=== PATIENT | male | born 1935 | race Caucasian/White ===

== ENCOUNTER → 2017-06-29 | Outpatient (CLI) | payer BC ==
[~2017-06-29] MED LIST: ASPI81TA28 PO; ATOR10TA88 PO; FINA5TAB PO; LEVO50TA6 PO; MULT-1027 PO; OXYC-57 PO; SENNTAB23 PO; SODI10IN5 INJ; TAMS0.4C38 PO; WARF2TAB PO
== END | disposition home or self-care (01) ==
LOC: C.RDSM 13:44
PROVIDERS: ATTEND Physical Medicine & Rehabilitation Sports Medicine
DX: M25.562 Pain in left knee (principal)

== ENCOUNTER 2017-08-12 05:41 | Inpatient (IN) | payer BC, OTHER ==
[2017-07-16 14:35] VITALS: BMI 27.0
--- NOTE | 2017-07-16 15:19 | PAT Medication Instructions ---
Service Date Jul 16, 2017. Current Home Medication List Aspirin (Aspirin Ec), 81 MG PO QPM Atorvastatin (Lipitor), 10 MG PO QPM Finasteride (Proscar), 5 MG PO QPM Levothyroxine Sodium (Levothyroxine Sodium), 1 TAB PO QPM Multiple Vitamin (Multi Vitamin), 1 TAB PO QPM Tamsulosin Hcl (Flomax), 0.4 MG PO QPM Medication Instructions For Your Scheduled Surgery - Take the following medications as scheduled the night before surgery: Aspirin (Aspirin Ec), 81 MG PO QPM Atorvastatin (Lipitor), 10 MG PO QPM Finasteride (Proscar), 5 MG PO QPM Levothyroxine Sodium (Levothyroxine Sodium), 1 TAB PO QPM Multiple Vitamin (Multi Vitamin), 1 TAB PO QPM Tamsulosin Hcl (Flomax), 0.4 MG PO QPM If you have any questions please call us at [phone] or [phone] or [phone]
[2017-07-16 16:10] LABS: BASO % 0.4 %; BASO ABS # 0.03 K/uL (0-0.2); COMPLETE YES; EOS % 5.4 %; HEMATOCRIT 47.8 % (42-52); IG% 0.3 %; LYMPH % 25.9 %; LYMPH ABS # 2.05 K/uL (1.2-3.4); MEAN CELL VOLUME 90.9 fL (80-100); MEAN CORPUSCULAR HEMOGLOBIN 30.2 pg (25-34); MEAN CORPUSCULAR HGB CONC 33.3 g/dl (32-36); MEAN PLATELET VOLUME 9.7 fL (7.4-10.4); MONO % 9.6 %; NEUT % 58.4 %; PLATELET COUNT 272 K/uL (130-400); RED BLOOD COUNT 5.26 M/uL (4.7-6.1); WHITE BLOOD COUNT 7.92 K/uL (4.8-10.8)
[2017-07-16 16:17] LABS: CALCIUM 10.1 mg/dl (8.5-10.1); CREATININE 1.1 mg/dl (0.60-1.40)
--- NOTE | 2017-07-16 16:17 | DIAGNOSTIC IMAGING REPORT ---
CHEST PREADMISSION(PA/LAT) CLINICAL HISTORY: Preoperative chest COMPARISON STUDY: No previous studies for comparison. FINDINGS: The cardiac and mediastinal contours are normal. There is no evidence of focal pulmonary consolidation. There is no evidence of failure. No pleural effusions are visualized.[ There is a calcified right upper lobe granuloma. . There is a 6 mm opacity the right lung base. A statistical basis, this represents either nipple shadow, postinflammatory nodule, or summation. IMPRESSION: 6 mm opacity at the right lung base, highly likely benign. No evidence of failure. No evidence of focal pulmonary consolidation Electronically signed by: Jonathan Carranza M.D. 07/16/2017 4:16 PM Dictated Date/Time: 07/16/2017 4:14 PM
[2017-07-16 16:30] LABS: INR 1.1 (0.9-1.1); PARTIAL THROMBOPLASTIN RATIO 1.7; PROTHROMBIN TIME (PATIENT) 11.5 SECONDS (9.0-12.0)
[2017-07-16 16:42] LABS: URINE APPEARANCE CLEAR (CLEAR); URINE BILIRUBIN NEG (NEG); URINE COLOR YELLOW; URINE NITRITE NEG (NEG); URINE SPECIFIC GRAVITY 1.022 (1.000-1.030); UROBILINOGEN NEG (NEG); ZZUR CULT IF INDIC CLEAN CATCH NO
[2017-07-16 16:43] LABS: MANUAL MICROSCOPIC REQUIRED? NO; REVIEW REQ? NO
--- NOTE | 2017-07-28 17:33 | HISTORY & PHYSICAL EXAMINATION ---
DATE OF ADMISSION: 08/12/2017 PREOPERATIVE HISTORY AND PHYSICAL CHIEF COMPLAINT: Left knee pain. HISTORY OF PRESENT ILLNESS: This 81-year-old white male presents for evaluation of left knee pain that has been present since 2011. Pain has become worse over the last year. No new injury. He likes to play pickleball, both here and in [place]. Pain is worse with weightbearing. It is affecting his ADLs. He denies any numbness or tingling. He has tried cortisone injections, viscosupplementation, and oral pain medication without success. He elects to proceed with total knee arthroplasty in hopes of alleviating his pain. X-rays have been obtained. PAST MEDICAL HISTORY: Significant for elevated cholesterol, aortic valve stenosis, BPH, chronic constipation, GERD, hypoglycemia, hypothyroidism, osteoarthritis, rosacea, and history of cataracts. PREVIOUS SURGERIES: Colonoscopy, sepsis surgery, tonsillectomy with adenoidectomy. ALLERGIES: NKDA. CURRENT MEDICATIONS: Aspirin 81 mg daily, atorvastatin 10 mg p.o. at bedtime, Colace 100 mg p.o. b.i.d., Flomax 0.4 mg p.o. daily, Synthroid 50 mcg p.o. daily, multivitamin daily, and Proscar 5 mg daily. SOCIAL HISTORY: The patient is . No tobacco use, no ETOH use. FAMILY HISTORY: Significant for Alzheimer disease, aortic valve disorder, arthritis, breast cancer, ovarian cancer, heart disease, dementia, diabetes, liver cancer and pancreatic cancer. Parents are . REVIEW OF SYSTEMS: Significant for above-stated conditions, otherwise unremarkable. PHYSICAL EXAMINATION: GENERAL: Well-developed, well-nourished elderly white male in no acute distress. Sitting in a chair. Alert and oriented. SKIN: Warm and dry with good turgor. No rashes or lesions. No ecchymosis or erythema. HEENT: Normocephalic, atraumatic. Eyes PERRLA, EOMI. Nares patent bilaterally without turbinate enlargement. Oropharynx without erythema or exudate. No lesions noted. Uvula midline. Oral mucosa moist. Fair dentition. Dental caps are noted. HEART: RRR, 2/6 systolic ejection murmur noted. No gallops or rubs. LUNGS: Clear to auscultation bilaterally. No crackles, rhonchi or wheezing. Good air movement. ABDOMEN: Bowel sounds present x4, soft, nontender. No organomegaly. No masses. MUSCULOSKELETAL: Left knee has no intraarticular effusion. Focal discomfort with palpation over the medial joint line. Varus alignment. No lateral joint line discomfort today. Stable collateral ligaments. No defect in the patellar tendon or quadriceps tendon. He lacks just 2 or 3 degrees of terminal extension. Flexion to greater than 100 degrees. Strength is 5/5 with good quad tone. NEUROLOGIC: Gross sensation is intact across both lower extremities by soft touch. Peripheral pulses are 2+. DATA: Radiographic imaging previously obtained shows end-stage DJD of the left knee. Periarticular osteophytes, subchondral sclerosis, and joint space narrowing are present. DJD is worse in the medial compartment. IMPRESSION: Left knee end-stage degenerative joint disease. PLAN: Informed written consent will be obtained to proceed with left total knee arthroplasty. Operative procedure, postoperative recovery, physical therapy requirements and medication use were reviewed. Postoperative prescriptions for Percocet and Coumadin will be provided at discharge from the hospital. Anticipate discharge to home with outpatient PT services. He already has a walker and cane. Medical clearance was requested from Dr. Decker. Preoperative lab work, EKG, and chest x-ray have been ordered.
[2017-08-12] VITALS (9 sets, daily range): BP systolic 111–156; BP diastolic 64–93; PULSE 66–90; TEMP 36.4–37.2; O2SAT 94–100; Ht 180.3 cm; Wt 89.9 kg
[~2017-08-12] VITALS: Ht 180.3 cm; Wt 89.9 kg
[~2017-08-12 05:41] MED LIST changes: +LACTATED RINGER'S 1000ML 1,000 ML IV SCH; +LACTATED RINGER'S 1000ML 500 ML IV ONE; -OXYC-57 PO; -SENNTAB23 PO; -SODI10IN5 INJ; -WARF2TAB PO
[2017-08-12] MEDS ORDERED: ROPIVACAINE 5MG/ML 30 ML 150 MG, BUPIVACAINE/EPINEPHR 0.5% MPF 30 ML, KETOROLAC TROMETH... INFIL SCH ×7 (06:00)
[2017-08-12] MEDS ORDERED: LACTATED RINGER'S 1000ML IV SCH (06:00)
[2017-08-12] MEDS ORDERED: CEFAZOLIN 2000 MG/60 ML D5W 60 ML IV SCH (06:00)
[2017-08-12] MEDS ORDERED: LACTATED RINGER'S 1000ML 1,000 ML IV SCH (06:00)
[2017-08-12] MEDS ORDERED: TRANEXAMIC ACID INJ 1,000 MG in SODIUM CHLORIDE 0.9% 100ML 100 ML IV SCH ×2 (06:00→16:00)
[2017-08-12] MEDS ORDERED: LACTATED RINGER'S 1000ML 500 ML IV ONE (06:00)
[2017-08-12] MEDS ORDERED: SENNTAB23 PO (06:12)
--- NOTE | 2017-08-12 06:26 | History & Physical Bridge Note ---
H&P Re-Evaluation Bridge Note: I have examined the patient, reviewed the History & Physical and in the interval since the performance of the History & Physical I have noted the following changes of clinical significance: reviewed consent.No changes noted
[2017-08-12] MEDS ORDERED: BUPIVACAINE 0.5 % 5 MG/1 ML PF 10ML VIAL ONE (06:31)
[2017-08-12] MEDS ORDERED: ONDANSETRON INJ 2 MG/ML 2 ML VIAL ONE (07:19)
[2017-08-12] MEDS ORDERED: LIDOCAINE HCL 2% 2 ML VIAL (20MG/ML) ONE (07:19)
[2017-08-12] MEDS ORDERED: PROPOFOL IV EMULSION 10 MG/ML 20 ML VIAL IV ONE (07:19)
[2017-08-12] MEDS ORDERED: FENTANYL CITRATE INJ 50 MCG/1 ML 2 ML VIAL ONE ×2 (07:30→08:59)
[2017-08-12] MEDS ORDERED: MIDAZOLAM HCL 1 MG/ML 2ML VIAL ONE (07:30)
[2017-08-12] MEDS ORDERED: BUPIVACAINE 0.25% 30 ML VIAL ONE (08:00)
[2017-08-12] MEDS ORDERED: ONDANSETRON INJ 2 MG/ML 2 ML VIAL IV PRN ×2 (08:30→10:45)
[2017-08-12] MEDS ORDERED: EpHEDrine SULFATE INJ 50 MG/ML AMP IV PRN (08:30)
[2017-08-12] MEDS ORDERED: MoRPHine SULFATE 10 MG/ML CARP/VIAL IV PRN (08:30)
[2017-08-12] MEDS ORDERED: ATROPINE SULFATE 0.1 MG/ML 5ML SYR IV PRN (08:30)
[2017-08-12] MEDS ORDERED: FENTANYL CITRATE INJ 50 MCG/1 ML 2 ML VIAL IV PRN (08:30)
[2017-08-12] MEDS ORDERED: ORTHO JOINT ANESTHETIC ONE (08:34)
[2017-08-12] MEDS ORDERED: POVIDONE-IODINE OP SOLN 30 ML BTL ONE (08:34)
[2017-08-12] MEDS ORDERED: EpHEDrine SULFATE INJ 50 MG/ML AMP ONE (09:53)
[2017-08-12] MEDS ORDERED: PHENYLEPHRINE 100MCG/ML 5ML SYR ONE (10:27)
--- NOTE | 2017-08-12 10:36 | [facility] Post Operative Brief Note ---
Immediate Operative Summary Operative Date Aug 12, 2017. Pre-Operative Diagnosis Left Knee End-Stage Degenerative Joint Disease Post-Operative Diagnosis Left Knee End-Stage Degenerative Joint Disease Procedure(s) Performed Left Total Knee Arthroplasty Surgeon Dr. Luciano Fraud Representative Surgeon(s) Dr. Siddiqui (Fellow)/ DELFINO Cedeño Estimated Blood Loss 50 ml Findings severe medial djd/varus/flexion deformity Fluids (cc crystalloids) 1400cc Specimens A. Left Knee Bone and Tissue Drains none Anesthesia LMA/obturator block Complication(s) None Disposition Recovery Room / PACU
[2017-08-12] MEDS ORDERED: MoRPHine SULFATE 2 MG/ML CARP IV PRN (10:45)
[2017-08-12] MEDS ORDERED: OXYCODONE HCL IR 5 MG TAB (IMMEDIATE RELEASE) PO PRN (10:45)
[2017-08-12] MEDS ORDERED: ACETAMINOPHEN 325 MG TAB PO PRN (10:45)
[2017-08-12] MEDS ORDERED: ALUMINUM/MAGNESIUM/SIMETH (MAALOX MAX) 30 ML UDC PO PRN (10:45)
[2017-08-12] MEDS ORDERED: DiphenhydrAMINE HCL 50 MG/ML VIAL IV PRN (10:45)
[2017-08-12] MEDS ORDERED: BISACODYL 10 MG SUPP PR PRN (10:45)
[2017-08-12] MEDS ORDERED: MAGNESIUM HYDROXIDE SUSP 30 ML UDC PO PRN (10:45)
[2017-08-12] MEDS ORDERED: METOCLOPRAMIDE HCL INJ 5 MG/ML 2 ML VIAL IV PRN (10:45)
--- NOTE | 2017-08-12 11:19 | OPERATIVE REPORT ---
DATE OF OPERATION: 08/12/2017 PREOPERATIVE DIAGNOSIS: Osteoarthritis with varus and flexion deformity, left knee. POSTOPERATIVE DIAGNOSIS: Same. OPERATION PERFORMED: Cemented left total knee replacement. SURGEON: Dr. Luciano. FUNCTIONAL SKILLS TUTOR: Artur. SECOND FUNCTIONAL SKILLS TUTOR: Nicanor Bello PA-C. PERIOPERATIVE SITUATION: Medically cleared male with intractable pain. Of note is that he had slightly elevated PTT. It was elected to use general anesthetic for that rather than the risk the spinal with epidural hematoma. There was no contraindication to proceed with surgery particularly without tourniquet. SUMMARY OF IMPLANTS: Size 4 posterior cruciate stabilized left knee, size 4 rotating tibial platform tray, oval domed 3 pegged patella size 41 tibial insert rotating platform size 4, 10 mm posterior cruciate substituting, 2 bags of Palacos G cement. ESTIMATED BLOOD LOSS: 50 mL after release of the tourniquet. CRYSTALLOID: 1400 mL. PROCEDURE: The patient appropriately identified, site verified, consent verified, 2 grams of Ancef and a gram of TXA confirmed as being given. The left lower extremity was prepped and draped in usual routine fashion. Tourniquet inflated to 300 mmHg after exsanguination of limb with a rubber Esmarch bandage for a total of 64 minutes. Anterior approach to the knee made. Parapatellar arthrotomy performed. Appropriate synovectomy completed, soft tissue releases needed to be quite extensive to get rid of the varus flexion deformity. Distal femur then resected 14 mm, proximal tibia 4 mm, extension gap was good. Femur was sized to a 4. It was cut and the flexion gap was slightly tight but after capsular releases, it was appropriate. There was no notching of the femur. Box cut was then made and the size 4 trial fit well. The tibia was then broached and reamed to a 4 and that fit well. The 10 mm spacer had excellent stability in full range. The patella tracked well. The patella was resected leaving 16 mm and 41 patella button placed. It tracked well. All trial implants were then removed. The wound was injected with Orthomix then irrigated with Pulsavac with Betadine and a Pulsavac and then the permanents cemented into position. After 12 minutes, the tourniquet deflated. After 14 minutes the knee flexed. Minor bleeding points controlled with electrocautery. Minor cement removal needed to occur. The wound was irrigated with the Pulsavac, Betadine. Permanent liner seated, knee reduced and then closed with #1 Ethibond, #1 Vicryl, 2-0 Vicryl and stainless steel clips. Appropriate dressing applied and patient transferred to recovery room in satisfactory condition having tolerated the procedure well. DVT prophylaxis will be carefully performed with Coumadin, try to keep INR less than 2. I attest to the content of the Intraoperative Record and any orders documented therein. Any exception s are noted below.
--- NOTE | 2017-08-12 11:26 | Anesthesiology Progress Note ---
Anesthesia Post Op Note Date & Time Aug 12, 2017 at 11:26 Vital Signs Pain Intensity: 0 Vital Signs Past 12 Hours Date Time Temp Pulse Resp B/P (MAP) Pulse Ox O2 Delivery O2 Flow Rate FiO2 08/12/17 11:20 36.3 69 14 141/75 95 Nasal Cannula 2 08/12/17 11:10 70 15 148/75 98 Nasal Cannula 2 08/12/17 11:00 71 14 143/73 97 Oxymask 10 08/12/17 10:50 69 12 120/66 98 Oxymask 10 08/12/17 10:44 36.2 73 16 121/64 97 Oxymask 10 08/12/17 06:19 36.4 74 20 156/93 97 Room Air Notes Mental Status: alert / awake / arousable, participated in evaluation Pt Amnestic to Procedure: Yes Nausea / Vomiting: adequately controlled Pain: adequately controlled Airway Patency, RR, SpO2: stable & adequate BP & HR: stable & adequate Hydration State: stable & adequate Anesthetic Complications: no major complications apparent
--- NOTE | 2017-08-12 11:30 | DIAGNOSTIC IMAGING REPORT ---
LEFT KNEE 2 VIEWS History: Left total knee arthroplasty. Degenerative arthritis. Postop. FINDINGS: The patient is status post a left total knee arthroplasty. The hardware is intact. No fracture or dislocation. Skin jacqueline are in place. IMPRESSION: Left total knee arthroplasty. No evidence for hardware complication. Electronically signed by: Sanjiv Mon M.D. 08/12/2017 11:29 AM Dictated Date/Time: 08/12/2017 11:28 AM
[2017-08-12] MEDS ORDERED: D5W AND 1/2NSS + 20MEQ KCL 1,000 ML IV SCH (12:30)
[2017-08-12] MEDS ORDERED: MoRPHine SULFATE 4 MG/ML 1 ML CARP\\VIAL IV PRN ×2 (13:00)
--- NOTE | 2017-08-12 13:08 | [facility] Operative Report ---
Operative Report Operative Date Aug 12, 2017. Pre-Operative Diagnosis Left Knee End-Stage Degenerative Joint Disease Post-Operative Diagnosis Left Knee End-Stage Degenerative Joint Disease Procedure(s) Performed Left Total Knee Arthroplasty Surgeon Dr. Luciano Fitness Floor Attendant Surgeon(s) Dr. Siddiqui (Fellow)/ DELFINO Loya Estimated Blood Loss 50 ml Findings Left knee end-stage DJD Fluids 1400cc Specimens A. Left Knee Bone and Tissue Drains none Anesthesia LMA/obturator block Complication(s) None Disposition Recovery Room / PACU Indications This 81-year-old white male presents to the office with complaints of intractable left knee pain. He had tried conservative care measures including activity modification, oral pain medication, and injection therapy without relief. He elected to proceed with surgical intervention after being educated about potential risks and outcomes. Preoperative imaging was obtained. Description of Procedure Patient was administered a regional block and then taken to the operating room where he was given general anesthesia. He was prepped and draped in usual sterile fashion. Please see Dr. Luciano's operative report for specifics of the procedure. I was present for the entire case from initial patient positioning through final wound closure. Assistance was provided in tissue traction, hemostasis, trial implant placement, final implant placement, and final wound closure. Patient was taken to the recovery room in satisfactory condition. I attest to the content of the Intraoperative Record and any orders documented therein. Any exceptions are noted below.
--- NOTE | 2017-08-12 13:41 | Progress Note ---
Progress Note Date of Service Aug 12, 2017. Progress Note Postop check patient doing well denies chest pain shortness breath fever chills nausea vomiting or headache. Tolerated lunch. Vital signs stable afebrile. Wound dressing clean and dry neurovascular check normal. Postop x-rays look excellent. Assessment doing well continue with care pathway. Hep-Lock IV. Dictated not read.
[2017-08-12] MEDS: CEFAZOLIN IV 2,000 MG in DEXTROSE 5% 50ML 50 ML IV SCH ×2 (15:41→23:20)
[2017-08-12] MEDS ORDERED: WARFARIN SOD 5 MG TAB PO SCH (16:00)
[2017-08-12] MEDS: KETOROLAC TROMETHAMINE 15 MG/ML VIAL IV. SCH ×2 (18:09→23:21)
[2017-08-12] MEDS: FERROUS GLUCONATE 324 MG TAB PO SCH (18:09)
[2017-08-12] MEDS: DOCUSATE SODIUM 100 MG CAP PO SCH (20:54)
[2017-08-12] MEDS ORDERED: FINASTERIDE 5 MG TAB PO SCH (21:00)
[2017-08-12] MEDS ORDERED: LEVOTHYROXINE 50 MCG TAB PO SCH (21:00)
[2017-08-12] MEDS ORDERED: TAMSULOSIN HCL 0.4 MG CAP PO SCH (21:00)
[2017-08-12] MEDS ORDERED: MULTIVITAMIN TAB PO SCH (21:00)
[2017-08-12] MEDS ORDERED: ATORVASTATIN 10 MG TAB PO SCH (21:00)
[2017-08-13 03:10] VITALS: BP 122/67; PULSE 76; TEMP 37; O2SAT 96
[2017-08-13] MEDS: KETOROLAC TROMETHAMINE 15 MG/ML VIAL IV. SCH ×2 (05:39→12:06)
--- NOTE | 2017-08-13 07:11 | PROGRESS NOTE ---
DATE: 08/13/2017 Postop day 1 status post left total knee replacement. The patient had good evening. Denies any problems with pain management and has no chest pain, shortness of breath, fever, chills, nausea, vomiting or headache. Vital signs are stable. He is afebrile. Neurovascular check femoral sciatic nerve is normal. Wound dressing clean, dry and intact. Calves nontender. A.m. labs are pending. ASSESSMENT: Doing well. Continue with postop pathway. We will discharge later today after PT, OT. We will discharge on 4 mg Coumadin if INR is less than 1.5; 2 mg if greater than 1.5. Doing outpatient PT.
--- NOTE | 2017-08-13 07:13 | DISCHARGE SUMMARY ---
DATE OF DISCHARGE: 08/13/17 CHIEF COMPLAINT: Left knee. HISTORY OF PRESENT ILLNESS: This is a 81-year-old male admitted for elective left total knee replacement. He notes that he has had no major issues overnight. He denies chest pain, shortness of breath, fever, chills, nausea, vomiting or headache. Pain is well managed. PAST MEDICAL HISTORY: Remarkable for hypercholesterolemia, aortic stenosis, BPH, chronic constipation, GERD, hypoglycemia, hypothyroidism, osteoarthritis, rosacea and cataracts. PAST SURGICAL HISTORY: Include colonoscopy, sepsis surgery, tonsillectomy and adenoidectomy. ALLERGIES: None. PREOPERATIVE MEDICATIONS: Include aspirin, atorvastatin, Colace, Flomax, Synthroid, multivitamin and Proscar. He will continue all of those and add Coumadin to keep INR 1.8-2.2. Will discharge on 4 mg if INR is less than 1.5 and 2 mg if INR is greater than 1.5. P.r.n. use of narcotics, see prescription. SOCIAL HISTORY: Reveals he is . No tobacco or alcohol use. FAMILY HISTORY: Remarkable for Alzheimer's disease, aortic valve disease, arthritis, breast cancer, ovarian cancer, heart disease, dementia, diabetes, liver cancer, pancreatic cancer. Parents are . REVIEW OF SYSTEMS: Noncontributory. ASSESSMENT: Hospital course has been uneventful, is doing well status post left total knee replacement. Discharge after PT, OT today. Coumadin dose per nomogram today. Of note is that his baseline PTT is relatively elevated and as such, will try to keep his INR below 2.
[2017-08-13 07:30] LABS: HEMATOCRIT 34.5 % (42-52); MEAN CELL VOLUME 88.9 fL (80-100); MEAN CORPUSCULAR HEMOGLOBIN 31.2 pg (25-34); MEAN CORPUSCULAR HGB CONC 35.1 g/dl (32-36); PLATELET COUNT 209 K/uL (130-400); RED BLOOD COUNT 3.88 M/uL (4.7-6.1)
[2017-08-13] MEDS ORDERED: DEXAMETHASONE INJ 10 MG in SYRINGE 0 ML IV ONE (07:30)
[2017-08-13 07:35] VITALS: BP 135/72; PULSE 80; TEMP 36.7; O2SAT 97
[2017-08-13 07:40] LABS: INR 1.2 (0.9-1.1); PROTHROMBIN TIME (PATIENT) 12.8 SECONDS (9.0-12.0)
[2017-08-13 08:05] LABS: BUN/CREATININE RATIO 13.9 (10-20); CALCIUM 8.6 mg/dl (8.5-10.1); CREATININE 1.2 mg/dl (0.60-1.40)
[2017-08-13] MEDS ORDERED: WARF2TAB PO (08:06)
[2017-08-13] MEDS ORDERED: OXYC-57 PO (08:06)
--- NOTE | 2017-08-13 08:06 | Anesthesiology Progress Note ---
Anesthesia Post Op Note Date & Time Aug 13, 2017 at 08:05 Vital Signs Pain Intensity: 2.0 Vital Signs Past 12 Hours Date Time Temp Pulse Resp B/P (MAP) Pulse Ox O2 Delivery O2 Flow Rate FiO2 08/13/17 03:10 37.0 76 16 122/67 (85) 96 Room Air 08/12/17 23:55 36.9 79 16 118/64 (82) 95 Room Air 08/12/17 23:20 Room Air Notes Mental Status: alert / awake / arousable, participated in evaluation Pt Amnestic to Procedure: Yes Nausea / Vomiting: adequately controlled Pain: adequately controlled Airway Patency, RR, SpO2: stable & adequate BP & HR: stable & adequate Hydration State: stable & adequate Anesthetic Complications: no major complications apparent
--- NOTE | 2017-08-13 08:09 | Discharge Instructions ---
Discharge Instructions Date of Service Aug 13, 2017. Admission Reason for Admission: Left Knee Degenerative Joint Disease Discharge Discharge Diagnosis / Problem: Left knee s/p total knee replacement Discharge Goals Goal(s): Decrease discomfort, Improve function, Increase independence Activity Recommendations Activity Limitations: as noted below Lifting Limitations: gradually increase as tolerated Exercise/Sports Limitations: until after follow-up appointment Shower/Bathe: keep incision dry Driving or Machine Use: No driving until cleared by Dr. Luciano Weightbearing Status: Left weightbearing (as tolerated) . Instructions / Follow-Up Instructions / Follow-Up New Medicine: * You will likely be taking one or more of these medications: 1. Percocet - Take, as directed, when you need it, every four to six hours to control your pain. 2. Coumadin - Thins your blood to lessen the chance of forming a blood clot. The dose of this is different for each person and is based on your blood tests that are done twice a week. * The most common side effects of pain medicine and iron are nausea and constipation. If nausea or constipation is too much of a problem or if you have any questions about your new medicines or doses, call [facility] at . We will try to help you manage these issues. VERY IMPORTANT TO READ AND REVIEW" Blood Clots and Blood Thinning Medicine: * You are given Coumadin during the immediate post-operative period to lessen the risk of blood clots forming in your legs and/or lungs. Coumadin is usually given for six weeks after surgery. * The prescription is for 2 mg tablets. At discharge, you should understand your dose and take it all at the same time every day, preferably after dinner. * You need to get your blood checked 1 - 2 times per week for six weeks or as directed. * If your dose needs to change, we will call you. Do not take your medication on the day of the blood test until we call you. Pain: * The immediate post-operative period after knee replacement surgery is often quite painful. * You are given a prescription for pain medicine. You should take it, as directed, when you need it, especially before physical therapy and before going to bed. Pain that interferes with sleep is very common and can last several months. * You will likely need pain medicine for the first four to six weeks. It will not stop all of the pain. The pain will lessen and as you feel better, you may change to milder pain medicine such as Tylenol. * The most common side effects of pain medicine are nausea and constipation, so don't take more than you need. Physical Therapy: * You will have physical therapy two or three times each week for four to six weeks after your surgery in order to regain your knee range of motion and to retrain your knee to work properly. * It is just as important to make sure you are getting your knee perfectly straight as it is to regain your knee bend. * Taking a pain pill an hour before therapy can help you have a more productive and comfortable therapy session if needed. Home Exercise: * You were shown a series of exercises (heel props, heel slides, etc.) in the hospital. Do these exercises three to four times each day including the exercises you were shown in physical therapy. Walking: * Get up and walk several times each day. For the first four weeks, try not to stand or walk for more than one hour at a time. If you do stand or walk for more than one hour, you will not hurt anything, but your knee and leg will likely swell. * As you feel comfortable, you may change from the walker or crutches to a cane and then to independent walking. SELF CARE INSTRUCTIONS AFTER TOTAL KNEE REPLACEMENT A. You may need to continue a physical therapy program after discharge from the hospital. There are several options available to you. Your doctor will assist you in selecting the best one for you. 1. An out-patient facility 2 to 3 times a week for therapy or home therapy. 2. Continue working on all exercises taught to you in the hospital. Your goals should be to increase bending of your knee to 90 degrees and beyond and to fully straighten your knee. B. You may progress at your own pace from walking with a walker or crutches to a cane; then to no assistive devices. C. Make walking a part of your daily routine. Be up as much as comfortable with rest periods throughout the day. Rest with leg elevation is very important. Use the ice wrap frequently for the first 3-4 weeks. D. There are no restrictions on activities. You may ride in a car, shop, participate in web developer programmer and all social activities. E. Wear the long elastic stockings (REHANA hose) 20 hours a day for six weeks after surgery. They can be removed several times a day for laundering and for a shower. F. Do not place a pillow behind your knee when resting. A pillow at your ankle is okay. VERY IMPORTANT TO READ AND REVIEW A. Take Coumadin, Aspirin or Lovenox (blood thinning medications) as directed by your doctor. If on Coumadin, have a pro-time (blood test) drawn according to your doctor's instructions. This will tell the doctor how well the Coumadin is thinning your blood. 1. YOU WILL BE GIVEN AN ORDER AT DISCHARGE FOR PT/INR (BLOOD WORK). PLEASE HAVE THIS DONE INSTRUCTED. PLEASE CALL OUR OFFICE AFTER YOUR BLOODWORK IS COMPLETE SO WE CAN TRACK YOUR RESULTS. IF YOU ARE GOING TO OUTPATIENT PHYSICAL THERAPY, YOU WILL NEED TO GO TO OUTPATIENT TESTING TO HAVE IT DRAWN. B. There are a few signs you need to watch for after you are home. Call [facility] if you notice any of the followin. Increased severe knee pain. Some pain is expected especially when you exercise. 2. Increased swelling in your leg or knee; pain or swelling of the calf muscle in either lower leg. 3. Any fluid drainage from the incision. 4. Shortness of breath or chest pain. C. Please call [facility] at if you have any concerns or questions about your operation or recovery. The doctor or his nurse will return your call promptly. D. You must take antibiotics before dental work, bladder, bowel or other surgery. Call the office to obtain a prescription at least 2 days prior to your appointment. * CALL IF INCREASED PAIN, REDNESS, DRAINAGE OR FEVER GREATER THAT 101. * Sutures should be removed 12-14 days after surgery unless you are on chronic steriods, then it will be 14-18 days after surgery. Call your doctor if: * Temperature above 101 degrees F. * Pain not relieved by pain medicine ordered. * Increased drainage or redness from incision. * Notify your doctor with any questions or concerns. Current Hospital Diet Patient's current hospital diet: Regular Diet Discharge Diet Recommended Diet: Regular Diet Procedures Procedures Performed: Left Total Knee Arthroplasty Pending Studies Studies pending at discharge: no Medical Emergencies . Who to Call and When: Medical Emergencies: If at any time you feel your situation is an emergency, please call 911 immediately. . Non-Emergent Contact Non-Emergency issues call your: Primary Care Provider, Surgeon Call Non-Emergent contact if: temperature is above 101, wound has increased drainage, wound has increased redness, wound has increased pain, you have any medication questions . "Provider Documentation" section prepared by Nicanor Bello PA-C. . VTE Core Measure Inpt VTE Proph given/why not?: Warfarin (Coumadin), T.E.D. Stockings, SCD's [place] Drug Monitoring Program Search Results: no issues identified
--- NOTE | 2017-08-13 08:20 | Orthopedic Progress Note ---
Orthopedic Progress Note Date of Service Aug 13, 2017. Subjective Post OP Day: 1 Reports: feeling well, pain controlled w PO medications, Denies: complaints, chest pain, SOB, nausea / vomiting, light headedness, calf pain Additional Notes: States he feels well. Objective calves soft nontender, N/V intact, capillary refill less than 2 sec., dressing C /D/I, incision C/D/I, A&O x3, toes mobile, CMS intact No active drainage, expected edema. Able to do a SLR. Date Time Temp Pulse Resp B/P (MAP) Pulse Ox O2 Delivery O2 Flow Rate FiO2 08/13/17 03:10 37.0 76 16 122/67 (85) 96 Room Air 08/12/17 23:55 36.9 79 16 118/64 (82) 95 Room Air 08/12/17 23:20 Room Air 08/12/17 19:13 36.7 90 18 147/80 (102) 95 Room Air 08/12/17 15:40 Room Air 08/12/17 14:51 36.4 66 16 135/73 (93) 100 Nasal Cannula 2.0 08/12/17 13:40 69 16 147/79 (101) 100 Nasal Cannula 2.0 08/12/17 12:59 73 16 152/80 (104) 08/12/17 12:28 67 16 146/76 (99) 08/12/17 11:40 98 Nasal Cannula 2.0 08/12/17 11:40 Nasal Cannula 2.0 98 08/12/17 11:40 36.4 70 16 150/81 (104) 98 Nasal Cannula 2.0 08/12/17 11:30 66 14 136/74 97 Nasal Cannula 2 08/12/17 11:20 36.3 69 14 141/75 95 Nasal Cannula 2 08/12/17 11:10 70 15 148/75 98 Nasal Cannula 2 08/12/17 11:00 71 14 143/73 97 Oxymask 10 08/12/17 10:50 69 12 120/66 98 Oxymask 10 08/12/17 10:44 36.2 73 16 121/64 97 Oxymask 10 Laboratory Results 24 Hours: Test 08/13/17 06:56 Hematocrit 34.5 % Hemoglobin 12.1 g/dL Prothromb Time International Ratio 1.2 Prothrombin Time 12.8 SECONDS Assessment & Plan Assessment: Left knee s/p total knee arthroplasty Plan: PT/OT today Anticipate D/C to home today coumadin per nomogram f/u in the office in 2 weeks. dressing changed this morning-wound looks very good. Discharge Planning Discharge Planning: home Pain Management: Percocet DVT Prophylaxis: TEDs, SCDs, Coumadin Therapy: Physical Therapy, Occupational Therapy
[2017-08-13] MEDS ORDERED: MULTIVITAMIN TAB PO SCH (09:00)
[2017-08-13] MEDS ORDERED: PANTOprazole SOD 40 MG TAB PO SCH (09:00)
[2017-08-13] MEDS: FERROUS GLUCONATE 324 MG TAB PO SCH ×2 (09:53→12:06)
[2017-08-13] MEDS: DOCUSATE SODIUM 100 MG CAP PO SCH (09:53)
[2017-08-13 11:20] VITALS: BP 158/79; PULSE 79; TEMP 36.7; O2SAT 96
[2017-08-13 11:35] VITALS: BP 158/79; PULSE 79; TEMP 36.7; O2SAT 96
[2017-08-13] MEDS ORDERED: WARFARIN SOD 5 MG TAB PO ONE (16:00)
== END 2017-08-13 15:25 | disposition home or self-care (01) | DRG 470 ==
LOC: C.ACU 05:41 → C.3E 06:25 → ENRESERV 11:07
PROVIDERS: ADMIT Physical Medicine & Rehabilitation Sports Medicine; ATTEND Physical Medicine & Rehabilitation Sports Medicine
PROC: 0SRD0J9 Replacement of Left Knee Joint with Synthetic Substitute, Cemented, Open Approach (ICD-10-PCS; principal; 2017-08-12 08:55)
DX: M17.12 Unilateral primary osteoarthritis, left knee (principal); E78.00 Pure hypercholesterolemia, unspecified; N40.0 Benign prostatic hyperplasia without lower urinary tract symptoms; K59.09 Other constipation; K21.9 Gastro-esophageal reflux disease without esophagitis; E03.9 Hypothyroidism, unspecified

== ENCOUNTER → 2017-09-29 | Outpatient (CLI) | payer BC, OTHER ==
[~2017-09-29] MED LIST changes: +ATOR10TA82 PO; -ATOR10TA88 PO; -LACTATED RINGER'S 1000ML 1,000 ML IV SCH; -LACTATED RINGER'S 1000ML 500 ML IV ONE; +OXYC-57 PO; +SENNTAB23 PO; +WARF2TAB PO
--- NOTE | 2017-09-29 14:06 | DIAGNOSTIC IMAGING REPORT ---
LEFT KNEE 3 VIEWS HISTORY: LEFT KNEE PAIN COMPARISON: Left knee 08/12/2017. FINDINGS: There is no fracture or dislocation. Interval left total knee arthroplasty. Mild periprosthetic lucency adjacent to the medial femoral condyle. This measures up to 2 mm. There is a medial tilt to the patella. This is likely chronic due to the medial patellar tilt. Large joint effusion. Anterior soft tissue swelling. No periprosthetic lucency. Severe cartilage space narrowing within the medial compartment of the right knee with [id number] articulation. IMPRESSION: 1. Large joint effusion and anterior soft tissue swelling. 2. Interval left total knee arthroplasty. There is mild periprosthetic lucency at the medial femoral condyle. This could be projectional are due to loosening/infection. Electronically signed by: Sanjiv Mon M.D. 09/29/2017 2:05 PM Dictated Date/Time: 09/29/2017 1:58 PM
== END | disposition home or self-care (01) ==
LOC: C.RDSM 13:38
PROVIDERS: ATTEND Physician Assistant
DX: T84.84XA Pain due to internal orthopedic prosthetic devices, implants and grafts, initial encounter (principal); Y83.1 Surgical operation with implant of artificial internal device as the cause of abnormal reaction of the patient, or of later complication, without mention of misadventure at the time of the procedure; Y70.2 Prosthetic and other implants, materials and accessory anesthesiology devices associated with adverse incidents

== ENCOUNTER → 2017-12-21 | Outpatient (CLI) | payer BC ==
--- NOTE | 2017-12-21 09:47 | DIAGNOSTIC IMAGING REPORT ---
LEFT KNEE INCLUDING BILATERAL STANDING AP VIEWS CLINICAL HISTORY: The pain COMPARISON: 09/29/2017 DISCUSSION: Standing AP views reveal persistent medial joint compartment narrowing involving the right knee. On the left there are postsurgical changes of a total left knee arthroplasty and patellar resurfacing. No acute fractures or dislocations are visualized. There is minimal periprosthetic lucency adjacent the medial femoral condyle. There is been interval decrease in the size of the left joint effusion. IMPRESSION: 1. No acute fractures 2. Interval decrease in the size of the left knee joint effusion 3. Mild periprosthetic lucency at the level of the medial femoral condyle, similar to the prior study Electronically signed by: Jonathan Carranza M.D. 12/21/2017 9:46 AM Dictated Date/Time: 12/21/2017 9:43 AM
== END | disposition home or self-care (01) ==
LOC: C.RDSM 10:01
PROVIDERS: ATTEND Physician Assistant
DX: T84.84XA Pain due to internal orthopedic prosthetic devices, implants and grafts, initial encounter (principal); Y83.1 Surgical operation with implant of artificial internal device as the cause of abnormal reaction of the patient, or of later complication, without mention of misadventure at the time of the procedure; M17.11 Unilateral primary osteoarthritis, right knee

== ENCOUNTER → 2018-06-16 | Day surgery (SDC) | payer BC ==
[2018-06-09 15:05] VITALS: Ht 180.3 cm; Wt 88.6 kg
[~2018-06-16] VITALS: Ht 180.3 cm; Wt 88.6 kg
[~2018-06-16] MED LIST changes: +500ML BSS 0.3ML EPI 1:1000PF IRRIG ONE; +ACETAMINOPHEN 325 MG TAB PO PRN; +AMVISC PLUS 0.8ML SYRINGE INT OCU ONE; +ATROPINE SULFATE 0.1 MG/ML 5ML SYR IV PRN; +AcetaZOLAMIDE 250 MG TAB PO SCH; +BETAXOLOL HCL 0.25% OP SUSP PER DROP CHARGE OPL SCH; +BRIMONIDINE TART 0.2% OP SOLN PER DROP CHARGE ONE; +BSS FLUSH ONE; +ENDOCOAT 0.85ML SYRINGE INT OCU ONE; +EpHEDrine SULFATE INJ 50 MG/ML AMP IV PRN; +EpINEphrine INJ 1MG/ML AMP 1 MG/ML AMP ONE; +FENTANYL CITRATE INJ 50 MCG/1 ML 2 ML VIAL IV PRN; +LACTATED RINGER'S 1000ML 500 ML IV SCH; +LIDOCAINE 4% OP SOLN DROP CHARGE ONE; +LIDOCAINE 4% OP SOLN DROP CHARGE OPL SCH; +LIDOCAINE HCL 1% MPF 2 ML VIAL ONE; +MIX: 4ML BSS 1ML EPI 1:1000 PF INSTIL ONE; +MOXIFLOXACIN OPH SOLN PER DROP CHARGE ONE; +ONDANSETRON INJ 2 MG/ML 2 ML VIAL IV PRN; -OXYC-57 PO; +PHENYLEPHRINE HCL 10% OP SOLN PER DROP CHARGE OPL STA; +POVIDONE-IODINE OP SOLN 30 ML BTL ONE; +PROPARACAINE 0.5% OP SOLN PER DROP CHARGE OPL SCH; +TOBRAMYCIN/DEXAMETHASONE OPH OINT PER APPLN CHARGE ONE; -WARF2TAB PO
--- NOTE | 2018-06-16 07:16 | History & Physical Bridge - [place] ---
H&P Re-Evaluation Bridge Note: I have examined the patient, reviewed the History & Physical and in the interval since the performance of the History & Physical I have noted the following changes of clinical significance: No changes noted
[2018-06-16] MEDS: PHENYLEPHRINE HCL 2.5% OP SOLN PER DROP CHARGE OPL SCH ×2 (09:16→09:21)
[2018-06-16] MEDS: TROPICAMIDE 1% OP SOLN PER DROP CHARGE OPL SCH ×2 (09:17→09:22)
[2018-06-16] MEDS: CYCLOPENTOLATE HCL 1% OP SOLN PER DROP CHARGE OPL SCH ×2 (09:18→09:23)
[2018-06-16] MEDS: MOXIFLOXACIN OPH SOLN PER DROP CHARGE OPL SCH ×2 (09:19→09:29)
--- NOTE | 2018-06-16 10:10 | [facility] Operative Report ---
Operative Report Date of Service Jun 16, 2018. Operative Report 1. PREOPERATIVE DIAGNOSIS: Senile nuclear cataract, left eye. 2. POSTOPERATIVE DIAGNOSIS: Senile nuclear cataract, left eye. 3. PROCEDURE: Phacoemulsification of left cataract with posterior chamber lens implant, type [employer], model MI60L, power +19.5 diopters. ANESTHESIA: Local standby. SURGEON: Dr. Agrawal. COMPLICATIONS: None. OPERATING TIME: 10 minutes. 4. OPERATION AND FINDINGS: DESCRIPTION OF PROCEDURE: The left pupil was dilated. The anesthetic was administered using a topical technique. The left eye was prepped and draped. A speculum was placed. A clear corneal incision was formed. The chamber was filled with Amvisc Plus and Endocoat. Epinephrine solution was used. A paracentesis was placed. A capsulorrhexis was performed. The nucleus was hydrodissected. The lens was removed with phacoemulsification. Time was 1.96 seconds. The aspiration unit was used to remove the cortex. The capsule was filled with Amvisc Plus. The lens implant was folded and placed into the capsule. The incision was hydrated. The Amvisc was aspirated. The wound was secure. The chamber was deep. The pupil was round. Brimonidine, TobraDex ointment and Vigamox solution were placed. The speculum was removed. The patient was returned to the Recovery Room in stable condition. I attest to the content of the Intraoperative Record and any orders documented therein. Any exceptions are noted below. The scribe's documentation has been prepared in my presence, under my direction and personally reviewed by me in its entirety. I confirm that the note above accurately reflects all work, treatment, procedures, and medical decision making performed by me. I personally scribed for Ben Agrawal M.D. ([email or web address]) on 06/16/18 at 10:10. Electronically submitted by Lizz Mccollum (YO).
--- NOTE | 2018-06-16 10:12 | Discharge Instructions-SurgCtr ---
Discharge Instructions Date of Service Jun 16, 2018. Visit Reason for Visit: Cataract Left Eye Discharge Discharge Diagnosis / Problem: lens implant left eye Discharge Goals Goal(s): Improve function Activity Recommendations Activity Limitations: resume your previous activity Lifting Limitations: no more than 10 pounds Exercise/Sports Limitations: gradually increase as tolerated May Resume Sexual Activity: when tolerated Shower/Bathe: tomorrow Driving or Machine Use: resume 1 day after discharge Anesthesia . Post Anesthesia Instructions: If you have had General Anesthesia or IV Sedation: * Do not drive today. * Resume driving when surgeon permits. * Do not make important decisions or sign legal documents today. * Call surgeon for: 1. Temperature elevations greater than 101 degrees F. 2. Uncontrollable pain. 3. Excessive bleeding. 4. Persistent nausea and vomiting. 5. Medication intolerance (nausea, vomiting or rash). * For nausea and vomiting use only clear liquids such as: tea, soda, bouillon until nausea subsides, then gradually increase diet as tolerated. * If you have any concerns or questions, call your surgeon's office. If physician is unavailable and it is an emergency, call 911 or go to the nearest emergency room. . Instructions / Follow-Up Instructions / Follow-Up ACTIVITY RECOMMENDATIONS: * Light activities. * Mild irritation and blurred vision are common for the first few days. * You may walk outside, read, watch television. * Redness around the white part of the eye is common. MEDICATIONS: Resume previous medications unless instructed otherwise by your surgeon. * Take white Diamox (Acetazolamide) tablet at 1 pm today. Start all eye drops at 1 pm today: * Eye drops (today and tomorrow): Durezol - one drop in operative eye every 3 hours while awake Ofloxacin - one drop in operative eye every 3 hours while awake SPECIAL CARE INSTRUCTIONS: * Tape plastic shield over eye to sleep at night. Call your doctor at with any concerns or problems. FOLLOW UP VISIT: Follow-up with Dr Agrawal at [facility] as scheduled. Diet Recommendations Home Diet: no limitations Procedures Procedures Performed: Left Cataract Phacoemulsification With Intraocular Lens Implant Pending Studies Studies pending at discharge: no Medical Emergencies . Who to Call and When: Medical Emergencies: If at any time you feel your situation is an emergency, please call 911 immediately. . Non-Emergent Contact Non-Emergency issues call your: Switchboard Operator Supervisor Call Non-Emergent contact if: your pain is not controlled [phone] . . "Provider Documentation" section prepared by Ben Agrawal. .
[2018-06-16 10:13] VITALS: TEMP 36
--- NOTE | 2018-06-16 10:36 | Anesthesia Progress Nt - [facility] ---
Anesthesia Post Op Note Date & Time Jun 16, 2018 at 10:36 Vital Signs Pain Intensity: 0 Vital Signs Past 12 Hours Date Time Temp Pulse Resp B/P (MAP) Pulse Ox O2 Delivery O2 Flow Rate FiO2 06/16/18 10:13 36.0 62 16 150/90 (110) 98 Room Air 06/16/18 09:09 36.5 62 16 163/79 (107) 98 Room Air Notes Mental Status: alert / awake / arousable, participated in evaluation Pt Amnestic to Procedure: Yes Nausea / Vomiting: adequately controlled Pain: adequately controlled Airway Patency, RR, SpO2: stable & adequate BP & HR: stable & adequate Hydration State: stable & adequate Anesthetic Complications: no major complications apparent
[2018-06-16 10:37] VITALS: BP 151/82; PULSE 58; O2SAT 97
== END | disposition home or self-care (01) ==
LOC: X.SURG 08:44
PROVIDERS: ATTEND Specialist
DX: H25.12 Age-related nuclear cataract, left eye (principal); E78.00 Pure hypercholesterolemia, unspecified; M19.90 Unspecified osteoarthritis, unspecified site; Z79.82 Long term (current) use of aspirin; Z79.899 Other long term (current) drug therapy; Z79.01 Long term (current) use of anticoagulants

== ENCOUNTER → 2018-06-21 | Outpatient (CLI) | payer BC ==
[~2018-06-21] MED LIST changes: -500ML BSS 0.3ML EPI 1:1000PF IRRIG ONE; -ACETAMINOPHEN 325 MG TAB PO PRN; -AMVISC PLUS 0.8ML SYRINGE INT OCU ONE; -ATROPINE SULFATE 0.1 MG/ML 5ML SYR IV PRN; -AcetaZOLAMIDE 250 MG TAB PO SCH; -BETAXOLOL HCL 0.25% OP SUSP PER DROP CHARGE OPL SCH; -BRIMONIDINE TART 0.2% OP SOLN PER DROP CHARGE ONE; -BSS FLUSH ONE; -ENDOCOAT 0.85ML SYRINGE INT OCU ONE; -EpHEDrine SULFATE INJ 50 MG/ML AMP IV PRN; -EpINEphrine INJ 1MG/ML AMP 1 MG/ML AMP ONE; -FENTANYL CITRATE INJ 50 MCG/1 ML 2 ML VIAL IV PRN; -LACTATED RINGER'S 1000ML 500 ML IV SCH; -LIDOCAINE 4% OP SOLN DROP CHARGE ONE; -LIDOCAINE 4% OP SOLN DROP CHARGE OPL SCH; -LIDOCAINE HCL 1% MPF 2 ML VIAL ONE; -MIX: 4ML BSS 1ML EPI 1:1000 PF INSTIL ONE; -MOXIFLOXACIN OPH SOLN PER DROP CHARGE ONE; -ONDANSETRON INJ 2 MG/ML 2 ML VIAL IV PRN; -PHENYLEPHRINE HCL 10% OP SOLN PER DROP CHARGE OPL STA; -POVIDONE-IODINE OP SOLN 30 ML BTL ONE; -PROPARACAINE 0.5% OP SOLN PER DROP CHARGE OPL SCH; -TOBRAMYCIN/DEXAMETHASONE OPH OINT PER APPLN CHARGE ONE
== END | disposition home or self-care (01) ==
LOC: C.RDSM 09:15
PROVIDERS: ATTEND Physical Medicine & Rehabilitation Sports Medicine
DX: Z96.652 Presence of left artificial knee joint (principal)

== ENCOUNTER 2024-11-10 05:20 | Observation (INO) ==
--- NOTE | 2024-10-31 14:48 | Anesthesiology Consultation ---
Date of Service October 31, 2024 Assessment & Plan (1) Encounter for pre-operative examination: - Infectious disease screening: Per assessment on 10/31/24- No known recent infectious disease contacts or current infectious disease symptoms. - Cardiology visit (10/31/24): "He feels well.. No SOB or chest pain with exercise. He had some gross hematuria and has been working with urology. They are planning on taking him for a TURP.. He has been holding his aspirin since the bleeding started.. Doing well overall. He did have frequent PVCs on his most recent EKG at [facility]. I would like him to wear a 24-hour Holter monitor to assess how many. If there is a significant amount, we can repeat his echo and increase his metoprolol. Otherwise we would increase his olmesartan to address his blood pressure.. He has been holding his daily baby aspirin due to hematuria. At this point I would just have him continue to hold until after his procedure at his it is a week away.. He is moderate risk to proceed with his TURP. We will fax over his echo after it is completed. His Holter may not be read by the time of his surgery but the surgery does not need to wait for the result." Echo done 11/07/24- "stable" findings. Per cardiology office 11/08/24, holter monitor still not completed. Per cardiology, okay to proceed prior to holter monitor report. Chart Review Chart Review: Acceptable Risk for Surgery and Patient NOT seen in Pre Admission Testing History Surgery Operation Date: 11/10/24 08:55 Proposed Procedures p TURP (Transurethral Resection of Prostate), Possible Bilateral Ureteroscopy - Adalid Jeffrey DO Height/Weight Height: 5 ft 10 in Weight: 77.111 kg Allergies Allergy/AdvReac Type Severity Reaction Status Date / Time No Known Allergies Allergy Verified 10/31/24 13:47 Medications Home Medications Medication Instructions Recorded Confirmed Last Taken metoprolol tartrate 25 mg tablet 25 mg PO BID 06/08/19 10/31/24 03/16/20 aspirin 81 mg tablet,delayed 81 mg PO DAILY 06/22/19 10/31/24 03/15/20 release levothyroxine 50 mcg tablet 50 mcg PO QAM 06/22/19 10/31/24 03/16/20 Clear Lax 1 dose PO DAILY 10/31/24 10/31/24 Unknown cholecalciferol (vitamin D3) 50 50 mcg PO DAILY 10/31/24 10/31/24 Unknown mcg (2,000 unit) capsule (Vitamin D3) olmesartan 20 mg tablet 10 mg PO HS 10/31/24 10/31/24 Unknown rosuvastatin 20 mg tablet 20 mg PO QAM 10/31/24 10/31/24 Unknown Past Medical History Medical History Coronary artery disease CABG x5 (2019) Enlarged prostate Frequent PVCs Hematuria, gross History of aortic valve disease s/p AV replacement 2019 Echo 11/2025: Well-seated 23 mm intuity bioprosthetic aortic valve replacement with normal hemodynamics. Trace valvular insufficiency. Hypercholesterolemia Hypertension Hypothyroidism Trifascicular block Hx noted per cardio records First degree + LAFB + RBBB Past Surgical History Surgical History History of knee replacement procedure of left knee History of thoracentesis x2 r/t postop left pleural effusion 2019 History of tonsillectomy and adenoidectomy History of total left knee replacement Hx of aortic valve replacement 2019, [facility] Hx of cardiac catheterization 2019 > CABG x5 Hx of five vessel coronary artery bypass CABG x5, [facility] (2019) Hx of LASIK Social History Smoking Status: Never smoker Do You Dip or Chew Tobacco: No Hx Alcohol Use: Yes (none for at least 15 years, only occasional when he did) alcohol intake frequency: 0-2 drinks per day Hx Substance Use: No substance use type: does not use Lab Results Anesthesia Preop Results Results Anesthesia Widget: WBC 7.66 K/ul (4.8-10.8) 10/27/24 Hgb 14.1 g/dl (14.0-18.0) 10/27/24 Hct 41.5 % (42.0-52.0) L 10/27/24 Plt 232 K/uL (130-400) 10/27/24 Na 141 mmol/L (136-145) 10/27/24 K 4.5 mmol/L (3.5-5.1) 10/27/24 Cl 104 mmol/L (98-107) 10/27/24 CO2 31 mmol/L (21-32) 10/27/24 BUN 25 mg/dl (6-23) H 10/27/24 Creat 1.31 mg/dl (0.6-1.4) 10/27/24 Glucose Level 98 mg/dl (70-99(Fasting)) 10/27/24 Urine Appearance Clear 10/04/24 Urine WBC (Auto) 0-5 /hpf (0-5) 10/04/24 Urine RBC (Auto) >20 /hpf (0-2) H 10/04/24 Urine Hyaline Casts (Auto) 0-2 /lpf (0-2) 10/04/24 Urine Epithelial Cells (Auto) 0-2 /hpf (0-2) 10/04/24 Urine Bacteria (Auto) None Seen (None Seen) 10/04/24 Testing Laboratory Results Urine culture (10/27/24): probable skin henry Electrocardiogram Date: 10/27/24 SR with frequent PVCs at 64bpm. LAD. RBBB. Chest X-Ray Date: 10/27/24 FINDINGS: Median sternotomy wires are unchanged. Aortic valvular prosthesis is seen. The lungs are clear. No evidence of pleural effusion or pneumothorax. IMPRESSION: No acute chest disease. Echocardiogram Date: 11/07/24 LVEF 55-60%. Hypokinesis of the basal inferior septal and basal inferior kenney. Grade 2 diastolic dysfunction. Mild LAD. Well-seated 23 mm intuity bioprosthetic aortic valve replacement with normal hemodynamics. Trace valvular insufficiency. Mild MR. Mild TR. PASP estimated 23 mmHg. Estimated pulmonary artery mean pressure 25 mmHg. No change compared to 07/2023 per report. "Echo is stable" per 11/07/24 cardiology note/Echo review. Cardiac Catheterization Date: 03/24/19 Summary: 1. Severe multi-vessel coronary artery disease- 100% proximal LAD. LAD fills via right to left collaterals. 99% ostial moderate caliber first diagonal. Subtotally occluded small first OM. 50% mid RCA, 60 to 70% distal RCA. Occluded R-PAV with PLB's filling via [id number] collaterals. 2. Normal intracardiac filling pressure 3. Peak to peak aortic valve gradient of 20 mmHg Recommendations: Evaluation for CABG with cardiac surgery at [facility] (CABG x5 subsequently performed)
[2024-11-10] MEDS: LR 15ML/HR IV SCH (05:59)
--- NOTE | 2024-11-10 06:42 | History & Physical Bridge Note ---
Date of Service November 10, 2024 History & Physical Bridge Note I have examined the patient, reviewed the History & Physical and in the interval since the performance of the History & Physical I have noted the following changes of clinical significance: no changes noted
[2024-11-10] MEDS ORDERED: PROPOFOL IV EMULSION 10 MG/ML 20 ML VIAL IV ONE (06:43)
[2024-11-10] MEDS ORDERED: DEXAMETHASONE SOD INJ 4 MG/ML VIAL ONE (06:43)
[2024-11-10] MEDS ORDERED: ONDANSETRON INJ 2 MG/ML 2 ML VIAL ONE (06:43)
[2024-11-10] MEDS ORDERED: LIDOCAINE 2% 2 ML VIAL/AMP(20MG/ML) INFIL ONE (06:43)
[2024-11-10] MEDS ORDERED: fentaNYL citrate PF 100 MCG/2 ML VIAL ONE (06:44)
[2024-11-10] MEDS ORDERED: fentaNYL citrate PF 100 MCG/2 ML VIAL IV PRN (06:50)
[2024-11-10] MEDS ORDERED: ePHEDrine sulfate 50 MG/ML AMP IV PRN (06:50)
[2024-11-10] MEDS ORDERED: ATROPINE SULFATE 0.1 MG/ML 10ML SYR IV PRN (06:50)
[2024-11-10] MEDS ORDERED: ONDANSETRON INJ 2 MG/ML 2 ML VIAL IV PRN ×2 (06:50→07:09)
[2024-11-10] MEDS: ceFAZolin 2000MG 2,000 MG/15 ML SYR IV SCH ×2 (06:58→13:18)
[2024-11-10] MEDS ORDERED: oxyCODONE/ACETAMINOPHEN 5mg/325mg TAB PO PRN (07:09)
[2024-11-10] MEDS ORDERED: MoRPHine SULFATE 2 MG/ML CARP IV PRN (07:09)
--- OUTSIDE RECORDS SUMMARY | 2024-11-10 07:11 | External Medical Summary | Continuity of Care Document ---
Author Name Unknown Organization [address] Address [address] [place], [place] [id number] Care Team Providers Care Packing Room Inspector Name Role Phone Abhinav Riojas Primary Care Physician [phone] [facility]counter [id number] Date(s): 10/31/24 - 10/31/24 [facility] [address], [address] [place] [address] [phone] Discharge Disposition: Home or Self Care Attending Physician: REYNA Chairez Sarah A Referring Physician: REYNA Chairez Sarah A Allergies, Adverse Reactions, Alerts No Known Medication Allergies Substance Criticality Severity Reaction Reaction Severity Status Allergy Not found in Search 1 Seasonal allergies Active 1Seasonal allergies Immunizations Given and Recorded Vaccine Date Status Refusal Reason influenza virus vaccine, inactivated 08/03/19 Give n influenza virus vaccine, inactivated 08/09/18 Give n influenza virus vaccine, inactivated 09/17/17 Give n influenza virus vaccine, inactivated 08/21/16 Give n influenza virus vaccine, inactivated 09/21/15 Give n influenza virus vaccine, inactivated 09/06/14 Give n influenza virus vaccine, inactivated 08/30/13 Give n influenza virus vaccine, inactivated 08/18/12 Give n pneumococcal 23-valent vaccine 01/29/13 Recorded pneumococcal 23-valent vaccine 1 09/14/03 Recorded tetanus toxoids-diphtheria, Td (Adult) 01/29/09 Re corded zoster vaccine live 06/09/07 Recorded 1Result Comment: 2019-09-06: Historical information-source unspecified Medications amoxicillin 500 mg oral capsule Start: 04/26/19 2:27:00 PM EDT, 4 cap, PO, As indicated, Disp# 12 cap, Refills: 3, one hour before dental and other procedures as directed Start Date: 04/26/19 Status: Ordered aspirin 81 mg oral tablet Start: 03/24/13 9:03:00 AM EDT, 1 tab, PO, Daily Start Date: 03/24/13 Status: Ordered fluocinonide 0.05% topical solution Start: 09/11/20 1:33:00 PM EST, 1 appl, topical, Daily, Disp# 60 mL, Refills: 3, apply to scalp, Pharmacy: [facility] [place] [address] Start Date: 09/11/20 Status: Ordered ketoconazole 2% topical shampoo Start: 09/11/20 1:32:00 PM EST, 1 appl, topical, Daily, Disp# 120 mL, Refills: 3, apply daily if bumps are present, otherwise use 1-2 times per week, Pharmacy: [facility] [place] [address] Start Date: 09/11/20 Status: Ordered levothyroxine 50 mcg (0.05 mg) oral tablet Start: 09/06/19 4:44:24 PM EST, See Instructions, Disp# 90, Refills: 3, take 1 tablet by mouth once daily, Pharmacy: [facility] [place] [address] Start Date: 09/06/19 Status: Ordered Metoprolol Tartrate 25 mg oral tablet Start: 01/14/24 10:05:00 AM EDT, 1 tab, PO, bid, Disp# 180 tab, Refills: 3, Pharmacy: [facility] Start Date: 01/14/24 Status: Ordered MiraLax Start: 06/08/19 10:24:00 AM EDT Start Date: 06/08/19 Status: Ordered multivitamin Start: 10/08/11 12:54:00 PM EST, 1 tab, PO, Daily, tab Start Date: 10/08/11 Status: Ordered olmesartan 20 mg oral tablet Start: 05/30/24 10:00:00 AM EDT, 0.5 tab, PO, Daily, Disp# 45 tab, Refills: 3, Pharmacy: [facility] Start Date: 05/30/24 Status: Ordered Proscar 5 mg oral tablet Start: 07/16/20 4:38:00 PM EDT, See Instructions, Disp# 90 tab, Refills: 0, TAKE ONE TABLET ONCE DAILY, Pharmacy: [email or web address] Start Date: 07/16/20 Status: Ordered rosuvastatin 20 mg oral tablet Start: 12/15/22 10:11:00 AM EST, 1 tab, PO, qhs Start Date: 12/15/22 Status: Ordered Suprep Bowel Prep Kit oral liquid Start: 10/21/22 2:56:00 PM EST, See Instructions, Disp# 354 mL, Refills: 0, Follow endoscopy centerinstructions for bowel prep, Pharmacy: [id number] Start Date: 10/21/22 Status: Ordered Problem List Condition Confirmation Course Effective Dates Status H ealth Status Informant Patient has active power of flight service specialist for health care Confirmed Active Aortic valve stenosis Confirmed Active Cataract Confirmed Active Chronic constipation Confirmed Active CAD in [place] artery Confirmed Active History of elevated glucose Confirmed Active S/P AVR (aortic valve replacement) Confirmed Active S/P CABG x 5 Confirmed Active History of total left knee replacement Confirmed Active Blood glucose elevated Confirmed Active Hypoglycemia Confirmed Active Hypothyroidism Confirmed Active Left knee pain Confirmed Active Osteoarthritis of left knee joint Confirmed Active Osteoarthritis of right knee joint Confirmed Active Pleural effusion Confirmed Active Osteoarthritis Confirmed Active Foot sprain Confirmed Active Weight disorder Confirmed Active Procedures Procedure Date Related Diagnosis Body Site Status Colonoscopy 1 11/04/22 Completed 12 lead ECG (regime/therapy) 06/08/19 Completed Chest X-ray 2 06/08/19 Completed Plain chest X-ray (procedure) 06/08/19 Completed US point of care ultrasound 06/08/19 Completed CL Cath Imgs for PACS use only 03/24/19 Completed Unknown 03/24/19 Completed X-ray of left knee (procedure) 02/07/19 Completed XR comparison views 02/07/19 Compl eted Ultrasonography of bilateral kidneys 12/10/18 Completed Cardiac catheterisation 2018 C ompleted Cataract surgery- bi-lat 2017 Completed Replacement of Left Knee Janina nt with Synthetic Substitute, Cemented, Open Approach 08/12/17 Completed Surgery- left knee 4 2016 Comp leted Colonoscopy 5 09/29/12 Completed septum surgery x 2 Comple steffany T & A Completed 1COLO to cecum, diverticulosis, henorrhoids, no further screening 21. No pneumothorax 2. Left pleural effusion. Mild decrease in sixe since prior exam. (thoracentesis preformed) right eye 4Left Knee 5Non-bleeding internal hemorrhoids were found duing endoscopy and were mild. A few diverticula were found in the sigmoid colon. Repeat colonoscopy in 10 years for surveillance. Social History Social History Type Response Smoking Status Never smoked cigaret henry Sex Male Sex Representation Male (finding) Implantable Device List Procedure Provider Procedure Date Device Type Site Unknown Unknown 05/04/19 Unknown Unknown Device Identifier Serial Number Lot or Batch Number Manufacturing Date Expiration Date Distinct Identification Code MRI Safety Implantable Status Assigning Authority Unknown Unknown N/A Unknown 01/19/22 Unknown Unknown Active Unkn own Patient Care team information Care Team Personnel Name: MD Ankita, Mauri Santoro Position: Physician - Sports Medicine [place] Member Role: Lifetime Relationship Address: [address] Name: MD Shine, Abhinav Burns Position: Referring Member Role: Primary Care Provider Address: [address] [place] [address] [place] Care Team Related Persons Name: SIA BENJAMIN
--- OUTSIDE RECORDS SUMMARY | 2024-11-10 07:11 | External Medical Summary | Continuity of Care Document ---
Author Name Unknown Organization [address] Address [address] [place], [place] [id number] Care Team Providers Care Appliance Adjuster Name Role Phone Abhinav Riojas Primary Care Physician [phone] [id number] Date(s): 10/31/24 - 10/31/24 [facility] [address], [address] [place] [address] [phone] Discharge Disposition: Home or Self Care Attending [...] mL, Refills: 3, apply to scalp, Pharmacy: [email or web address] [place] [address] Start Date: 09/11/20 Status: Ordered ketoconazole 2% topical shampoo Start: 09/11/20 1:32:00 PM EST, 1 appl, topical, Daily, Disp# 120 mL, Refills: 3, apply daily if bumps are present, otherwise use 1-2 times per week, Pharmacy: [email or web address] [place] [address] Start Date: 09/11/20 Status: Ordered levothyroxine 50 mcg (0.05 mg) oral tablet Start: 09/06/19 4:44:24 PM EST, See Instructions, Disp# 90, Refills: 3, take 1 tablet by mouth once daily, Pharmacy: [email or web address] [place] [address] Start Date: 09/06/19 Status: Ordered Metoprolol Tartrate 25 mg oral tablet Start: 01/14/24 10:05:00 AM EDT, 1 tab, PO, bid, Disp# 180 tab, Refills: 3, Pharmacy: [facility] Start Date: 01/14/24 Status: Ordered MiraLax Start: 06/08/19 10:24:00 AM EDT Start Date: 06/08/19 Status: Ordered multivitamin Start: 10/08/11 12:54:00 PM EST, 1 tab, PO, Daily, tab Start Date: 10/08/11 Status: Ordered olmesartan 20 mg oral tablet Start: 05/30/24 10:00:00 AM EDT, 0.5 tab, PO, Daily, Disp# 45 tab, Refills: 3, Pharmacy: [facility] Start Date: 05/30/24 Status: Ordered Proscar 5 mg oral tablet Start: 07/16/20 4:38:00 PM EDT, See Instructions, Disp# 90 tab, Refills: 0, TAKE ONE TABLET ONCE DAILY, Pharmacy: [facility] Start Date: 07/16/20 Status: Ordered rosuvastatin 20 mg oral tablet Start: 12/15/22 10:11:00 AM EST, 1 tab, PO, qhs Start Date: 12/15/22 Status: Ordered Suprep Bowel Prep Kit oral liquid Start: 10/21/22 2:56:00 PM EST, See Instructions, Disp# 354 mL, Refills: 0, Follow endoscopy centerinstructions for bowel prep, Pharmacy: [facility]/pharmacy #[id number] Start Date: 10/21/22 Status: Ordered Problem List Condition Confirmation Course Effective Dates Status H ealth Status Informant Patient has active power of managing attorney for health care Confirmed Active Aortic valve stenosis Confirmed Active Cataract Confirmed Active Chronic constipation Confirmed Active CAD in [place] artery Confirmed Active History of elevated glucose [...] [place] Member Role: Lifetime Relationship Address: [address] Name: MD Shine, Abhinav Burns Position: Referring Member Role: Primary Care Provider Address: [address] [place] [address] [place] Care Team Related Persons Name: SIA BENJAMIN
--- OUTSIDE RECORDS SUMMARY | 2024-11-10 07:11 | External Medical Summary | Continuity of Care Document ---
Author Name Unknown Organization [facility] 303 [facility] Address [address] [place], [place] [id number] Care Team Providers Care Baggage And Mail Agent Name Role Phone Abhinav Riojas Primary Care Physician [phone] Encounter [facility] [id number] Date(s): 10/31/24 - 10/31/24 [facility] [address], [address] [place] [address] [phone] Encounter Diagnosis Frequent PVCs(Discharge Diagnosis) - 10/31/24 S/P TAVR (transcatheter aortic valve replacement)(Discharge Diagnosis) - 11/03/24 HTN (hypertension)(Discharge Diagnosis) - 11/03/24 Preop examination(Discharge Diagnosis) - 11/03/24 Discharge Disposition: Home or Self Care Attending Physician: REYNA Chairez Sarah A Allergies, Adverse Reactions, Alerts No Known Medication Allergies Substance Criticality Severity Reaction Reaction Severity Status Allergy Not found in Search 1 Seasonal allergies Active 1Seasonal allergies Assessment and Plan Extracted from: Title:Cardiology Office Visit Note Author:REYNA Gee rd, Sarah A Date:11/03/24 Impression: 1. Coronary disease status coronary bypass grafting x5 with a STERLING to the LAD, SVG to the PDA, SVG to the anterior marginal, SVG to the OM and an SVG to the diagonal (05/2019). 2. Status post bioprosthetic aortic valve replacement with a 23 mm Kennedy Intuity valve 05/2019. 3. Postoperative pleural effusion on the left, status post thoracentesis x2. 4. Normal biventricular size and function07/2023 with a normally functioning bioprosthetic aortic valve, no evidence of pulmonary hypertension and type 2 diastolic dysfunction. 5. Left total knee replacement in 2016. 6. 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 Frequent PVCs. Mr. Benjamin is doing well overall. He did have frequent PVCs on his most recent EKG at [facility]. I would like him to wear a 24 hour Holter monitor to assess how many. If there is a significant amount, we can repeat his echo and increase his metoprolol. Otherwise we could increase his olmesartan to address his blood pressure. He has been holding his daily baby aspirin due to hematuria. At this point I would just hav him continue to hold until after his procedure as it is a week away. He has good functional capacity and can accomplish 4 METS. He is not having any anginal symptoms. He is moderate risk to proceed with his TURP. We will fax over his echo after it's completed. His Holter may not be read by the time of his surgery but the surgery does not need to wait for the result. He'll return to the clinic in 6 months. Immunizations Given and Recorded Vaccine Date Status [...] mL, Refills: 3, apply to scalp, Pharmacy: [email or web address] [place] [address] Start Date: 09/11/20 Status: Ordered ketoconazole 2% topical shampoo Start: 09/11/20 1:32:00 PM EST, 1 appl, topical, Daily, Disp# 120 mL, Refills: 3, apply daily if bumps are present, otherwise use 1-2 times per week, Pharmacy: [email or web address] Start Date: 09/11/20 Status: Ordered levothyroxine 50 mcg (0.05 mg) oral tablet Start: 09/06/19 4:44:24 PM EST, See Instructions, Disp# 90, Refills: 3, take 1 tablet by mouth once daily, Pharmacy: [email or web address] Start Date: 09/06/19 Status: Ordered Metoprolol Tartrate 25 mg oral tablet Start: 01/14/24 10:05:00 AM EDT, 1 tab, PO, bid, Disp# 180 tab, Refills: 3, Pharmacy: [facility] [id number] Start Date: 01/14/24 Status: Ordered MiraLax Start: 06/08/19 10:24:00 AM EDT Start Date: 06/08/19 Status: Ordered multivitamin Start: 10/08/11 12:54:00 PM EST, 1 tab, PO, Daily, tab Start Date: 10/08/11 Status: Ordered olmesartan 20 mg oral tablet Start: 05/30/24 10:00:00 AM EDT, 0.5 tab, PO, Daily, Disp# 45 tab, Refills: 3, Pharmacy: [facility] [id number] Start Date: 05/30/24 Status: Ordered Proscar 5 mg oral tablet Start: 07/16/20 4:38:00 PM EDT, See Instructions, Disp# 90 tab, Refills: 0, TAKE ONE TABLET ONCE DAILY, Pharmacy: [email or web address] [place] [address] Start Date: 07/16/20 Status: Ordered rosuvastatin 20 mg oral tablet Start: 12/15/22 10:11:00 AM EST, 1 tab, PO, qhs Start Date: 12/15/22 Status: Ordered Suprep Bowel Prep Kit oral liquid Start: 10/21/22 2:56:00 PM EST, See Instructions, Disp# 354 mL, Refills: 0, Follow endoscopy centerinstructions for bowel prep, Pharmacy: [facility]/pharmacy #[id number] Start Date: 10/21/22 Status: Ordered Mental Status 10/31/24 Barriers to Learning one year Vision imp airment Mandatory Health Literacy Documentation Yes Health Literacy Communication Barriers N ever Primary Language [place] Problem List Condition Confirmation Course Effective Dates Status H ealth Status Informant Patient has active power of assistant district attorney for health care Confirmed Active Aortic valve stenosis Confirmed Active Cataract Confirmed Active Chronic constipation Confirmed Active CAD in [place] artery Confirmed Active History of elevated glucose [...] sprain Confirmed Active Weight disorder Confirmed Active Diagnosis Diagnosis Type Effective Dates Health Status Clinical Service Informant Frequent PVCs Discharge Diagnosis 10/31/24 Non-Specified Preop examination Discharge Diagnosis 11/03/24 Non-Specified S/P TAVR (transcatheter aortic valve replacement) Discharge Diagnosis 11/03/24 Non-Specified HTN (hypertension) Discharge Diagnosis 11/03/24 Non-Specified Procedures Procedure Date Related Diagnosis Body Site [...] Repeat colonoscopy in 10 years for surveillance. Vital Signs Most recent to oldest [Reference Range]: 1 Patient Weight 72.8 kg (10/31/24 10:51 AM) Heart Rate 64 bpm (10/31/24 10:51 AM) Respiratory Rate 16 br/min (10/31/24 10:51 AM) Blood Pressure 154/88mmHg (10/31/24 10:51 AM) BP Location # 1 Left Arm (10/31/24 10:51 AM) Social History Social History Type Response Smoking [...] Unknown 01/19/22 Unknown Unknown Active [facility]kn own Cardiology Outpatient Note * REYNA Chairez Sarah A: PERFORM, MODIFY Event Display: Cardiology Outpt Note Authored Date: [id number] Primary Care Provider MD Shine, Abhinav Burns Chief Complaint F/U holding ASA blood in urine Denies chest pressure, Palpitations, heart racing, dizziness or lightheadedness no SOB or edema. Exercise on hold, no resent ER visits History of Present Illness Mr. Benjamin presents for follow up of his history of CAD. He feels well. He still goes to the [employer] for exercise - walks two miles 2-3 x per week. He played [employer] ball yesterday. No sob or chest pain with exercise. He had some gross hematuria and has been working with urology. They are planning on taking himfor a TURP. At his time he sees a small clot in his urine at times but overall the bleeding is much better. He has been holding his aspirin since the bleeding started. Review of Systems All other systems reviewed and negative except as discussed in the HPI Physical Exam Vitals & Measurements HR:64(Monitored) RR:16 BP:154/88 SpO2:98% WT:72.800kg(Dosing) WT:72.8kg Physical Examination General: Alert and oriented, No acute distress. Respiratory: Lungs are clear to auscultation, Respirations are non-labored. Cardiovascular: Normal rate, Regular rhythm, No murmur, No edema, no carotid bruits to auscultation bilaterally. Integumentary: Warm, Dry, [place] Neurologic: Alert, Oriented. Cognition and Speech: Speech clear and coherent. Psychiatric: Cooperative, Appropriate mood & affect. Assessment/Plan Impression: 1. Coronary disease status coronary bypass grafting x5 with a STERLING to the LAD, SVG to the PDA, SVG to the anterior marginal, SVG to the OM and an SVG to the diagonal (05/2019). 2. Status post bioprosthetic aortic valve replacement with a 23 mm Kennedy Intuity valve 05/2019. 3. Postoperative pleural effusion on the left, status post thoracentesis x2. 4. Normal biventricular size and function07/2023 with a normally functioning bioprosthetic aortic valve, no evidence of pulmonary hypertension and type 2 diastolic dysfunction. 5. Left total knee replacement in 2016. 6. 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 Frequent PVCs. Mr. Benjamin is doing well overall. He did have frequent PVCs on his most recent EKG at [facility]. I would like him to wear a 24 hour Holter monitor to assess how many. If there is a significant amount, we can repeat his echo and increase his metoprolol. Otherwise we could increase his olmesartan to address his blood pressure. He has been holding his daily baby aspirin due to hematuria. At this point I would just hav him continue to hold until after his procedure as it is a week away. He has good functional capacity and can accomplish 4 METS. He is not having any anginal symptoms. He is moderate risk to proceed with his TURP. We will fax over his echo after it's completed. His Holter may not be read by the time of his surgery but the surgery does not need to wait for the result. He'll return to the clinic in 6 months. Problem List/Past Medical History Ongoing Aortic valve stenosis ARTHRITIS Blood glucose elevated BPH CAD in [place] artery Cataract Chronic constipation Foot sprain GERD History of elevated glucose History of total left knee replacement Hypoglycemia Hypothyroidism Left knee pain MIXED HYPERLIPIDEMIA Osteoarthritis Osteoarthritis of left knee joint Osteoarthritis of right knee joint Patient has active power of assistant district attorney for health care Pleural effusion ROSACEA S/P AVR (aortic valve replacement) S/P CABG x 5 Weight disorder Resolved Fainting spell Knee pain, bilateral Newly recognized murmur Osteoarthritis, knee Shortness of breath Procedure/Surgical History Colonoscopy| Service Date: 11/04/2022US point of care ultrasound| Service Date: 06/08/2019Plain chest X-ray (procedure)| Service Date: 06/08/201912 lead ECG (regime/therapy)| Service Date: 06/08/2019Chest X-ray| Service Date: 06/08/2019Unknown| Service Date: 03/24/2019CL Cath Imgs for PACS use only| Service Date: 03/24/2019XR comparison views| Service Date: 02/07/2019X-ray of left knee (procedure)| Service Date: 02/07/2019Ultrasonography of bilateral kidneys| Service Date: 12/10/2018Cardiac catheterisation| Service Date: 2018Cataract surgery- bi-lat| Service Date: 2017Replacement of Left Knee Joint with Synthetic Substitute, Cemented, Open Approach| Service Date: 08/12/2017Surgery- left knee| Service Date: 2016Colonoscopy| Service Date: 09/29/2012 septum surgery x 2 T & A Medications amoxicillin(amoxicillin 500 mg oral capsule), 2000 mg= 4 cap, PO, As indicated aspirin(aspirin 81 mg oral tablet), 81 mg= 1 tab, PO, Daily finasteride(Proscar 5 mg oral tablet), See Instructions fluocinonide topical(fluocinonide 0.05% topical solution), 1 appl, topical, Daily, 3 refills ketoconazole topical(ketoconazole 2% topical shampoo), 1 appl, topical, Daily, 3 refills levothyroxine(levothyroxine 50 mcg (0.05 mg) oral tablet), See Instructions, 3 refills magnesium sulfate/potassium sulfate/sodium sulfate(Suprep Bowel Prep Kit oral liquid), See Instructions metoprolol(Metoprolol Tartrate 25 mg oral tablet), 1 tab, PO, bid multivitamin, 1 tab, PO, Daily olmesartan(olmesartan 20 mg oral tablet), 0.5 tab, PO, Daily polyethylene glycol 3350(MiraLax) rosuvastatin(rosuvastatin 20 mg oral tablet), 20 mg= 1 tab, PO, qhs Allergies Allergy Not found in SearchSeasonal allergies No Known Medication Allergies Social History Smoking Status Never smoked cigarettes Alcohol - Low Risk Nutrition/Health - No Risk Substance Abuse - Denies Substance Abuse Tobacco - Denies Tobacco Use Use:Never smoker Family History Alzheimer disease: Sister. Aortic valve disorder: Brother. Arthritis: Father. Breast cancer: Sister. Cancer of ovary: Sister. Cardiovascular disease: Brother. Dementia: Sister and Brother. Diabetes: Mother. Liver cancer: Sister. Pancreatic cancer: Sister. Health Status Family Member(s) Family Member(s) Relationship: Mother, Age: 94 Years, Cause: old age Relationship: Father, Age: 60 Years, Cause: pulomnary silicosis Relationship: Sister, Age: 65 Years, Cause: cancer Relationship: Brother, Age: 82 Years Electronic Signature on File CC: Abhinav Riojas MD [address] [place] [address] Electronically Reviewed/Signed by: REYNA Freeman Author Signature Dt/Tm:11/03/2024 03:13 PM [facility] Patient Care team information Care Team Personnel Name: MD Ankita, Mauri Santoro Position: Physician - Sports Medicine [place] Member Role: Lifetime Relationship Address: [address] [place] [phone] [place] Name: MD Shine, Abhinav Burns Position: Referring Member Role: Primary Care Provider Address: [address] [place] [address] [place] Care Team Related Persons Name: SIA BENJAMIN"
--- OUTSIDE RECORDS SUMMARY | 2024-11-10 07:11 | External Medical Summary | Continuity of Care Document ---
Author Name Unknown Organization [address] Address [address] [place], [place] [id number] Care Team Providers Care Credit Report Checker Name Role Phone Abhinav Riojas Primary Care Physician [phone] [id number] Date[facility]s): 10/31/24 - 10/31/24 [facility] [address] [place] [address] [phone] Encounter Diagnosis Frequent PVCs(Discharge Diagnosis) - 10/31/24 Discharge Disposition: Home or Self Care Attending [...] mL, Refills: 3, apply to scalp, [facility] Start Date: 09/11/20 Status: Ordered ketoconazole 2% topical shampoo Start: 09/11/20 1:32:00 PM EST, 1 appl, topical, Daily, Disp# 120 mL, Refills: 3, apply daily if bumps are present, otherwise use 1-2 times per week, [facility] Start Date: 09/11/20 Status: Ordered levothyroxine 50 mcg (0.05 mg) oral tablet Start: 09/06/19 4:44:24 PM EST, See Instructions, Disp# 90, Refills: 3, take 1 tablet by mouth once daily, Pharmacy: [facility] Start Date: 09/06/19 Status: Ordered Metoprolol Tartrate 25 mg oral tablet Start: 01/14/24 10:05:00 AM EDT, 1 tab, PO, bid, Disp# 180 tab, Refills: 3, Pharmacy: [facility] Start Date: 01/14/24 Status: Ordered MiraLax Start: 06/08/19 10:24:00 AM EDT Start Date: 06/08/19 Status: Ordered multivitamin Start: 10/08/11 12:54:00 PM EST, 1 tab, PO, Daily, tab Start Date: 10/08/11 Status: Ordered olmesartan 20 mg oral tablet Start: 05/30/24 10:00:00 AM EDT, 0.5 tab, PO, Daily, Disp# 45 tab, Refills: 3, Pharmacy: [facility] Start Date: 05/30/24 Status: Ordered Proscar 5 mg oral tablet Start: 07/16/20 4:38:00 PM EDT, See Instructions, Disp# 90 tab, Refills: 0, TAKE ONE TABLET ONCE DAILY, Pharmacy: [facility] Start Date: 07/16/20 Status: Ordered rosuvastatin 20 mg oral tablet Start: 12/15/22 10:11:00 AM EST, 1 tab, PO, qhs Start Date: 12/15/22 Status: Ordered Suprep Bowel Prep Kit oral liquid Start: 10/21/22 2:56:00 PM EST, See Instructions, Disp# 354 mL, Refills: 0, Follow endoscopy centerinstructions for bowel prep, Pharmacy: [facility]/pharmacy #[id number] Start Date: 10/21/22 Status: Ordered Mental Status 10/31/24 Barriers to Learning one year Vision imp airment Mandatory Health Literacy Documentation Yes Health Literacy Communication Barriers N ever Primary Language Sam[place] Problem List Condition Confirmation Course Effective Dates Status H ealth Status Informant 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 Confirmed Active Aortic valve stenosis Confirmed Active Cataract Confirmed Active Chronic constipation Confirmed Active CAD in [place] artery Confirmed Active History of elevated glucose [...] Diagnosis Diagnosis Type Effective Dates Health Status Cl inical Service Informant Frequent PVCs Discharge Diagnosis 10/31/24 Non-Specified Procedures Procedure Date Related Diagnosis Body [...] [place] Member Role: Lifetime Relationship Address: [address] [address] [place] Name: MD Riojas Rodney M Position: Referring Member Role: Primary Care Provider Address: [address] [place] [address] [place] Care Team Related Persons Name: SIA BENJAMIN
[2024-11-10] MEDS ORDERED: ePHEDrine sulfate 50 MG/5 ML SYR ONE (07:12)
[2024-11-10] MEDS: DIATRIZOATE MEGLUMINE 30% 100ML VIAL INSTIL ONE (07:34)
--- NOTE | 2024-11-10 08:32 | Operative Report ---
PG Post Operative Report Pre & Post Diagnosis Operation Date: 11/10/24 07:00 Pre-Op Diagnosis: Gross Hematuria, BPH Without Lower Urinary Tract Symptoms Post-Op Diagnosis: Gross Hematuria, BPH Without Lower Urinary Tract Symptoms I identified the patient and participated in the time-out.: Yes Procedure Operation Date: 11/10/24 07:00 Actual Procedures p Transurethral Resection of Prostate, Bilateral Retrograde, Left Stent Placement, Extraction of Bladder Stones(Not Applicable) - Adalid Jeffrey DO Surgeon Adalid Jeffrey, II, DO [employer] None Estimated Blood Loss 10 Findings Consistent with Post-Op Diagnosis Large Prostate with obstruction. Large varicosities Severe trabeculation and diverticulum throughout the bladder. Innumerable small stones under 1 cm in base of bladder. Specimens Prostate adenoma. Drains 22Fr [address] Catheter Left 4.8 x 26 double-J ureteral stent Anesthesia Type General Complications none Disposition Disposition: Recovery Room Indications Patient with obstruction due to prostate enlargement. Risks and benefits discussed at length. Description of Procedure Patient was consented and brought back to the operating room. Patient was placed under anesthesia in the supine position and moved to the dorsal lithotomy position. Patient was prepped and draped in the regular sterile fashion. A time out was completed. A 30degree Cystoscope was placed into the bladder and the entire bladder was examined. The UO's were identified as well as the bladder neck, trigone, dome, and the other important landmarks. Severe trabeculation and massive diverticulum monitoring throughout the bladder. A very large diverticulum was noted next to the left UO. The prostatic urethra and large lobes/adenoma was assessed and the veru and bladder neck identified and area/size was assessed. Significant median lobe with large lateral lobes and severe prostatic varicosities. Within the base of the bladder innumerable small stones less than a centimeter were discovered. Throughout the multiple diverticulum there were also stones that were discovered. The stones were able to be extracted and irrigated. Once flush cleared some old blood clot material was able to be evacuated as well. A retrograde pyelogram was completed on both sides with a 5 Anguillan open-ended catheter. On the left there appeared to be some signs of obstruction likely due to the very large diverticulum next to the left UO. A wire was then placed on the left and a 4.8 x 26 double-J ureteral stent was placed and confirmed in good position with fluoroscopy. The resection scope was placed and the fine bipolar loop was selected. Starting at the 5 and 7 o'clock positions, a channel was created from bladder neck to the veru. This was taken down to capsule fibers. There was some top pockets of debris and possible old blood within the resected tissue. The 1 and 11:00 positions were then resected and carried down to the channel. This was also resected down to capsule fibers. The Specimen was removed and sent for analysis. Extensive irrigation was necessary in order to clear all the pieces from the resection. The prostate chips did appear to get entrapped in some of the diverticulum. And these had to be each individually irrigated in order to clear the specimen pieces. The resection bed and any bleeding areas were fulgurated/cauterized and the entire area inspected. All bleeding was controlled. The bladder was inspected a final time. The bladder was emptied and irrigated. All specimen and debris was removed. The scope was removed with the bladder partially full. A catheter was placed and balloon elevated. This was easily irrigated. The patient was cleaned, aroused from anesthesia, and transferred to the pacu in stable condition having tolerated the procedure well with no complications. I was present and participated in all aspects of the procedure. The patient will be monitored in the PACU until transferred. Plan to maintain catheter on CBI overnight. Will likely need catheter for approximately 10 days. Return to office for removal of catheter and stent in office. Will discuss pathology at that time. Plan for cystoscopy with stent removal and trial of void in 10 days I attest to the content of the Intraoperative Record and any orders documented therein. Any exceptions are noted below.
[2024-11-10 09:04] LABS: Basophils # (auto) 0.05 K/uL (0.00-0.20); Basophils % (auto) 0.4 %; Eosinophils # (auto) 0.23 K/uL (0.00-0.50); Eosinophils % (auto) 1.8 %; Hematocrit (blood only) 36.3 % (42.0-52.0); Hemoglobin 12.4 g/dl (14.0-18.0); Immature Granulocytes # (auto) 0.07 K/uL (0.01-0.20); Immature Granulocytes % (auto) 0.6 %; Lymphocytes # (auto) 1.06 K/uL (1.20-3.40); Lymphocytes % (auto) 8.4 %; Mean Corpuscular Hemoglobin 30.8 pg (25.0-34.0); Mean Corpuscular Hgb Conc 34.2 g/dL (32.0-36.0); Mean Corpuscular Volume 90.3 fL (80.0-100.0); Mean Platelet Volume 10.3 fL (9.4-12.4); Monocytes # (auto) 0.46 K/uL (0.11-0.59); Monocytes % (auto) 3.6 %; Neutrophils # (auto) 10.78 K/uL (1.40-6.50); Neutrophils % (auto) 85.2 %; Platelet Count 191 K/uL (130-400); RDW Coefficient of Variation 12.6 % (11.5-14.5); RDW Standard Deviation 41.7 fL (36.4-46.3); Red Blood Count 4.02 M/uL (4.70-6.10); White Blood Count 12.65 K/ul (4.8-10.8)
[2024-11-10 09:23] LABS: Albumin Globulin Ratio 1.4 (0.9-2); Albumin Level 3.8 gm/dl (3.4-5.0); BUN Creatinine Ratio 15.2 (10-20); Bilirubin,Total 0.5 mg/dl (0.2-1.0); Calcium 8.9 mg/dl (8.6-10.3); Creatinine Clr Calc Pharmacy 43.8 ml/min; Globulin 2.7 gm/dl (2.5-4.0); Potassium 4.3 mmol/L (3.5-5.1); Total Protein 6.5 gm/dl (6.0-8.3)
--- NOTE | 2024-11-10 10:27 | Fluoroscopy Report ---
FL retrograde includes kub CLINICAL HISTORY: RETROGRADE COMPARISON STUDY: None FLUOROSCOPY TIME: 91 seconds FLUOROSCOPY IMAGES: 4 EXPOSURE DOSE: 16 mGy FINDINGS: Fluoroscopy was provided for cystography. IMPRESSION: Intraoperative fluoroscopy. ACT 112: Negative or not required by law. Electronically signed by: Deepak Lucero M.D. 11/10/2024 10:25 AM
--- NOTE | 2024-11-10 10:44 | Anesthesiology Progress Note ---
Date of Service November 10, 2024 Anesthesia Post Procedure Vital Signs Vital Signs: Temp Pulse Pulse Resp BP Pulse Ox O2 Del Method 11/10/24 10:30 65 15 144/68 H 98 Room Air 11/10/24 10:15 61 15 146/68 H 97 Room Air 11/10/24 10:00 36.4 C L 63 14 154/70 H 98 Room Air 11/10/24 09:45 60 17 155/70 H 98 Room Air 11/10/24 09:30 59 L 16 153/79 H 97 Room Air 11/10/24 09:15 61 19 143/69 H 100 Room Air 11/10/24 09:10 36.2 C L 61 14 145/79 H 98 Room Air 11/10/24 09:00 66 20 155/72 H 100 Room Air 11/10/24 08:50 61 15 153/74 H 100 Oxymask 11/10/24 08:40 61 16 147/75 H 100 Oxymask 11/10/24 08:31 36.1 C L 63 16 156/82 H 100 Oxymask 11/10/24 05:49 36.6 C 62 16 147/88 H 99 Room Air O2 Flow Rate 11/10/24 10:30 11/10/24 10:15 11/10/24 10:00 11/10/24 09:45 11/10/24 09:30 11/10/24 09:15 11/10/24 09:10 11/10/24 09:00 11/10/24 08:50 2 11/10/24 08:40 10 11/10/24 08:31 10 11/10/24 05:49 Transfer of Care Handoff Completed per policy Notes Mental Status: alert / awake / arousable Patient Amnestic to Procedure: Yes Nausea / Vomiting: adequately controlled Pain: adequately controlled Airway Patency, RR, SpO2: stable & adequate BP & HR: stable & adequate Hydration State: stable & adequate Anesthetic Complications: no major complications apparent and Pt Satisfied with anesthetic care
[2024-11-10] MEDS: METOPROLOL TARTRATE 25 MG TAB PO SCH (11:06)
[2024-11-11] MEDS: LEVOTHYROXINE SODIUM 50 MCG TABLET PO SCH (06:00)
[2024-11-11 10:58] LABS: Basophils # (auto) 0.05 K/uL (0.00-0.20); Basophils % (auto) 0.4 %; Eosinophils # (auto) 0.13 K/uL (0.00-0.50); Hematocrit (blood only) 38.6 % (42.0-52.0); Hemoglobin 13.3 g/dl (14.0-18.0); Immature Granulocytes # (auto) 0.06 K/uL (0.01-0.20); Immature Granulocytes % (auto) 0.4 %; Lymphocytes # (auto) 1.23 K/uL (1.20-3.40); Lymphocytes % (auto) 9.1 %; Mean Corpuscular Hemoglobin 30.7 pg (25.0-34.0); Mean Corpuscular Hgb Conc 34.5 g/dL (32.0-36.0); Mean Corpuscular Volume 89.1 fL (80.0-100.0); Mean Platelet Volume 10.5 fL (9.4-12.4); Monocytes # (auto) 0.76 K/uL (0.11-0.59); Monocytes % (auto) 5.6 %; Neutrophils # (auto) 11.28 K/uL (1.40-6.50); Neutrophils % (auto) 83.5 %; Platelet Count 232 K/uL (130-400); RDW Coefficient of Variation 12.4 % (11.5-14.5); RDW Standard Deviation 40.8 fL (36.4-46.3); Red Blood Count 4.33 M/uL (4.70-6.10); White Blood Count 13.51 K/ul (4.8-10.8)
[2024-11-11 11:13] LABS: BUN Creatinine Ratio 14.6 (10-20); Calcium 9.3 mg/dl (8.6-10.3); Creatinine Clr Calc Pharmacy 44.5 ml/min; Potassium 3.9 mmol/L (3.5-5.1)
--- NOTE | 2024-11-11 11:32 | Urology Progress Note ---
Date of Service November 11, 2024 Assessment & Plan (1) Hematuria: (2) BPH w urinary obs/LUTS: Plan - POD #1 s/p Transurethral Resection of Prostate, Bilateral Retrograde, Left Stent Placement, Extraction of Bladder Stones w/Dr. Jeffrey - Subjectively feeling well - Afebrile and hemodynamically stable - Labs reviewed - WBC 13.51, Hemoglobin 13.3, Creatinine 1.23 - Rdz intact and draining clear yellow urine with CBI on slow rate - CBI clamped this morning, nursing aware - will reassess later this AM - Maintain Rdz catheter - Continue supportive care - Expected clinical course reviewed, all questions answered - Anticipate discharge later today with Rdz catheter presuming urine appropriate and he continues to progress as expected Admission and Anticipated Discharge Date Admission Date: November 10, 2024 Subjective Pt seen at bedside this AM Awake and resting in bed on arrival No acute distress Rdz draining clear yellow with CBI on slow rate Denies pain Denies f/c/n/v Review of Systems Constitutional: as per Subjective / HPI Genitourinary: + as per Subjective / HPI Physical Exam Constitutional: no acute distress Respiratory: no respiratory distress and no labored breathing Neurologic: awake Psychiatric: Orientation: alert, oriented to person and cooperative Genitourinary: Rdz intact w/CBI Results & Data Vital Signs (Past 12 Hours) Vital Signs Temp Pulse Pulse Pulse Resp BP Pulse Ox 11/11/24 11:18 36.6 C 65 18 151/77 H 98 11/11/24 07:39 36.4 C L 66 20 135/66 98 11/11/24 07:12 62 11/11/24 01:30 36.4 C L 69 16 143/69 H 98 O2 Del Method 11/11/24 11:18 Room Air 11/11/24 07:39 Room Air 11/11/24 07:12 11/11/24 01:30 Room Air PG Care Time/CCT Total # of Minutes Spent Total Time Spent with Patient: Total time spent is greater than 50% in coordination of care (as documented) at patient's floor/unit and/or counseling patient: Coding Level of Care Code None Diagnoses Hematuria R31.9 BPH w urinary obs/LUTS N40.1; N13.8
--- OUTSIDE RECORDS SUMMARY | 2024-11-11 17:41 | External Medical Summary | Continuity of Care Document ---
Author Name Unknown Organization [place] [id number] [facility] Address [address] [place], [place] [id number] Care Team Providers Care Blender Helper Name Role Phone Abhinav Riojas Primary Care Physician [phone] [id number] Date(s): 11/08/[facility] - 11/08/24 [facility] [address], [address] [place] [address] [phone] Discharge Disposition: Home or Self Care Attending Physician: DO Dial Jason D Referring Physician: DO Dial Jason D Allergies, Adverse Reactions, Alerts No Known Medication [...] mL, Refills: 3, apply to scalp, Pharmacy: [facility] [place] [address] Start Date: 09/11/20 Status: Ordered ketoconazole 2% topical shampoo Start: 09/11/20 1:32:00 PM EST, 1 appl, topical, Daily, Disp# 120 mL, Refills: 3, apply daily if bumps are present, otherwise use 1-2 times per week, Pharmacy: [facility] [place] [address] Start Date: 09/11/20 Status: Ordered levothyroxine 50 mcg (0.05 mg) oral tablet Start: 09/06/19 4:44:24 PM EST, See Instructions, Disp# 90, Refills: 3, take 1 tablet by mouth once daily, Pharmacy: [id number] [place] [address] Start Date: 09/06/19 Status: Ordered Metoprolol Tartrate 25 mg oral tablet Start: 01/14/24 10:05:00 AM EDT, 1.5 tab, PO, bid, Disp# 180 tab, Refills: 3, Pharmacy: [id number] Start Date: 01/14/24 Status: Ordered MiraLax Start: 06/08/19 10:24:00 AM EDT Start Date: 06/08/19 Status: Ordered multivitamin Start: 10/08/11 12:54:00 PM EST, 1 tab, PO, Daily, tab Start Date: 10/08/11 Status: Ordered olmesartan 20 mg oral tablet Start: 05/30/24 10:00:00 AM EDT, 0.5 tab, PO, Daily, Disp# 45 tab, Refills: 3, Pharmacy: [facility] Start Date: 05/30/24 Status: Ordered Proscar 5 mg oral tablet Start: 07/16/20 4:38:00 PM EDT, See Instructions, Disp# 90 tab, Refills: 0, TAKE ONE TABLET ONCE DAILY, Pharmacy: [id number] [place] [address] Start Date: 07/16/20 Status: Ordered rosuvastatin 20 mg oral tablet Start: 12/15/22 10:11:00 AM EST, 1 tab, PO, qhs Start Date: 12/15/22 Status: Ordered Suprep Bowel Prep Kit oral liquid Start: 10/21/22 2:56:00 PM EST, See Instructions, Disp# 354 mL, Refills: 0, Follow endoscopy centerinstructions for bowel prep, Pharmacy: [facility]/pharmacy #[id number] Start Date: 10/21/22 Status: Ordered Problem List Condition Confirmation Course Effective Dates Status H ealth Status Informant Patient has active power of business attorney for health care Confirmed Active Aortic valve stenosis Confirmed Active Cataract Confirmed Active Chronic constipation Confirmed Active CAD in [place] artery Confirmed Active History of elevated glucose [...] Approach 08/12/17 Completed Surgery- left knee 4 2017 Comp leted Colonoscopy 5 09/29/12 Completed septum [...] SC Member Role: Lifetime Relationship Address: [address] Name: MD Shine, Abhinav Burns Position: Referring Member Role: Primary Care Provider Address: [address] [place] [address] Care Team Related Persons Name: SIA BENJAMIN
--- OUTSIDE RECORDS SUMMARY | 2024-11-11 17:41 | External Medical Summary | Continuity of Care Document ---
Author Name Unknown Organization [address] Address [address] [place], [place] [id number] Care Team Providers Care Flag Signalman Name Role Phone bAhinav Riojas Primary Care Physician [phone] [id number] Date(s): 11/07/24 - 11/07/24 [facility] [address], [address] [place] [address] [phone] Discharge Disposition: Home or Self Care Attending [...] mL, Refills: 3, apply to scalp, Pharmacy: [facility] [place] [address] Start Date: 09/11/20 Status: Ordered ketoconazole 2% topical shampoo Start: 09/11/20 1:32:00 PM EST, 1 appl, topical, Daily, Disp# 120 mL, Refills: 3, apply daily if bumps are present, otherwise use 1-2 times per week, Pharmacy: [facility] [place] [address] Start Date: 09/11/20 Status: Ordered levothyroxine 50 mcg (0.05 mg) oral tablet Start: 09/06/19 4:44:24 PM EST, See Instructions, Disp# 90, Refills: 3, take 1 tablet by mouth once daily, Pharmacy: [facility] [place] [address] Start Date: 09/06/19 Status: Ordered Metoprolol Tartrate 25 mg oral tablet Start: 01/14/24 10:05:00 AM EDT, 1 tab, PO, bid, Disp# 180 tab, Refills: 3, Pharmacy: [facility] Start Date: 01/14/24 Status: Ordered MiraLax Start: 06/08/19 10:24:00 AM EDT Start Date: 06/08/19 Status: Ordered multivitamin Start: 10/08/11 12:54:00 PM EST, 1 tab, PO, Daily, tab Start Date: 10/08/11 Status: Ordered olmesartan 20 mg oral tablet Start: 05/30/24 10:00:00 AM EDT, 0.5 tab, PO, Daily, Disp# 45 tab, Refills: 3, Pharmacy: [facility] Start Date: 05/30/24 Status: Ordered Proscar 5 mg oral tablet Start: 07/16/20 4:38:00 PM EDT, See Instructions, Disp# 90 tab, Refills: 0, TAKE ONE TABLET ONCE DAILY, Pharmacy: [facility] Start Date: 07/16/20 Status: Ordered rosuvastatin 20 mg oral tablet Start: 12/15/22 10:11:00 AM EST, 1 tab, PO, qhs Start Date: 12/15/22 Status: Ordered Suprep Bowel Prep Kit oral liquid Start: 10/21/22 2:56:00 PM EST, See Instructions, Disp# 354 mL, Refills: 0, Follow endoscopy centerinstructions for bowel prep, Pharmacy: [facility]/pharmacy #[id number] Start Date: 10/21/22 Status: Ordered Problem List Condition Confirmation Course Effective Dates Status H ealth Status Informant Patient has active power of document review attorney for health care Confirmed Active Aortic valve stenosis Confirmed Active Cataract Confirmed Active Chronic constipation Confirmed Active CAD in [place] artery Confirmed Active History of elevated glucose [...] Repeat colonoscopy in 10 years for surveillance. Results Radiology Reports * Exam Date Time Procedure Performing Provider Status 11/07/24 1:56 PM Echo TransTHORacic TTE Complete Cecille Figueroa; Final Notes: (Echo TransTHORacic TTE Complete) Reason For Exam: frequent pvc Echo TransTHORacic TTE Complete Report Signatures Finalized by Dr. Micheal Dial MD on 11/07/2024 03:20 PM [place] Act 112: Yes - Discussed with patient Summary 1. Normal left ventricular size. 2. hypokinesis of the basal inferoseptal and basal inferior kenney. 3. Preserved LV systolic function; ejection fraction as calculated by Biplane Simpsons method is 55-60%. 4. No left ventricular hypertrophy. 5. Grade II diastolic dysfunction of the left ventricle (pseudonormal filling pattern) with elevated left atrial pressure. 6. Top normal right ventricle size with normal systolic function. 7. Mildly dilated left atrium. 8. Well-seated 23 mm Intuity bioprosthetic aortic valve replacement with normal hemodynamics. Trace valvular insufficiency. 9. Mild mitral valve regurgitation. 10. Mild tricuspid regurgitation. 11. Normal estimated pulmonary artery pressures, estimated PASP 23 mmHg. 12. Estimated pulmonary arterial mean pressure 25 mmHg. 13. NO change compared to 07/2023. Patient Info Name: ELVIS BENJAMIN Age: 88 years : 1935 Gender: Male Ht: 178 cm Wt: 73 kg BSA: 1.91 m2 HR: 69 bpm BP: 150 / 72 mmHg Heart Rhythm: Sinus Rhythm Technical Quality: Good Exam Date: 11/07/2024 12:55 PM Exam Location: [facility] Patient Status: Outpatient Staff Ordering Physician: Meagan Chairez Animal Biologist: Cecille Figueroa RDCS, RVT Attending Physician: Meagan Chairez Study Info CPT 19785 - Indications Z95.2 - Aortic Valve Replacement I493 - Ventricular premature depolarization Procedure(s) * A complete two-dimensional, color flow and Doppler transthoracic echocardiogram was performed. Exam Type: Cardiac Basic Left Ventricle Normal left ventricular size. hypokinesis of the basal inferoseptal and basal inferior kenney. Preserved LV systolic function; ejection fraction as calculated by Biplane [place]ons method is 55-60%. No left ventricular hypertrophy. Grade II diastolic dysfunction of the left ventricle (pseudonormal filling pattern) with elevated left atrial pressure. Right Ventricle Top normal right ventricle size with normal systolic function. TAPSE is normal, 2.0 cm. Left Atrium Mildly dilated left atrium. Right Atrium Normal right atrial size. Atrial Septum Lipomatous hypertrophy of the atrial septum; appears intact. Aortic Valve Well-seated 23 mm Intuity bioprosthetic aortic valve replacement with normal hemodynamics. Trace valvular insufficiency. Pulmonic Valve Mild to moderate pulmonic insufficiency. Estimated pulmonary arterial mean pressure 25 mmHg. Mitral Valve Calcified mitral valve annulus without stenosis. Mild mitral valve regurgitation. Tricuspid Valve Mild tricuspid regurgitation. Normal estimated pulmonary artery pressures, estimated PASP 23 mmHg. Pericardium/Pleural No pericardial effusion. Inferior Vena Cava Normal IVC size and inspiratory collapse. Estimated right atrial pressure is 3 mmHg. Aorta Calcified sinotubular junction. Normal size aortic root, ascending aorta and aortic arch. Left Ventricular Outflow Tract Name Value Normal LVOT 2D LVOT Diameter 1.9 cm LVOT Doppler LVOT Peak Velocity 1.03 m/s LVOT Peak Gradient 4 mmHg LVOT Mean Gradient 2 mmHg LVOT VTI 22.74 cm LVOT VTI/AV VTI Ratio 0.51 LVOT Stroke Volume 63.57 ml LVOT Stroke Volume Index 0.03 l/m2 LVOT Cardiac Output 4.39 l/min LVOT Cardiac Index 2.30 L/min/m2 Pulmonic Valve Name Value Normal PV 2D RVOT Diameter (2D) 2.5 cm 1.7-2.7 RVOT Doppler RVOT Peak Velocity 0.64 m/s PV Doppler PV Peak Velocity 1.41 m/s PV Regurgitation Doppler IN Peak Velocity 2.36 m/s Mitral Valve Name Value Normal MV Doppler MV Peak Velocity 1.13 m/s MV Peak Gradient 5 mmHg MV Mean Gradient 3 mmHg MV VTI 40.81 cm MV PHT 74 ms MV Area (Cont Eq VTI) 1.6 cm2 MV Area Index (Cont Eq VTI) 0.82 cm2/m2 MV Diastolic Function MV E Peak Velocity 1.11 m/s <=0.50 MV A Peak Velocity 0.92 m/s MV E/A 1.20 <=0.80 MV Decel Time 254 ms MV Annular TDI MV Septal s' Velocity 7.10 cm/s MV Septal e' Velocity 4.91 cm/s >=7.00 MV E/e' (Septal) 22.6 <=8.0 MV Lateral s' Velocity 11.40 cm/s MV Lateral e' Velocity 7.71 cm/s >=10.00 MV E/e' (Lateral) 14.40 <=8.00 MV e' Average 6.31 MV E/e' (Average) 18.50 <=14.00 Tricuspid Valve Name Value Normal TV Regurgitation Doppler TR Peak Velocity 2.22 m/s <=2.80 TR Peak Gradient 14 mmHg Estimated PAP/RSVP RA Pressure 3 mmHg <=5 PA Systolic Pressure 23 mmHg <40 PA Mean Pressure (IN Velocity) 25 mmHg TV Diastolic Function TV E Peak Velocity 0.42 m/s TV A Peak Velocity 0.24 m/s TV E/A 1.76 0.80-2.00 TV Decel Time 187 ms >=120 TV Annular TDI TV Lateral Latanya s' Velocity 12.1 cm/s 9.5-18.7 TV Lateral Latanya e' Velocity 11.0 cm/s <7.8 TV E/e' 3.79 2.00-6.00 Aorta Name Value Normal Ascending Aorta Sinus of Valsalva Diameter 3.6 cm 3.1-3.7 Sinus of Valsalva Index 1.88 cm/m2 1.50-1.90 Prox Asc Ao Diameter 3.2 cm 2.6-3.4 Prox Asc Ao Diameter Index 1.68 cm/m2 1.30-1.70 Thoracic Aorta Ao Arch Diameter 2.7 cm Venous Name Value Normal IVC/SVC IVC Diameter (Insp 2D) 0.4 cm IVC Diameter (Exp 2D) 2.0 cm <=2.1 IVC Diameter Percent Change (2D) 81 % >=50 Aortic Valve Name Value Normal AV Doppler AV Peak Velocity 2.27 m/s <2.00 AV Peak Gradient 21 mmHg AV Mean Gradient 11 mmHg <20 AV VTI 44.78 cm AV Area (Cont Eq VTI) 1.4 cm2 >=2.0 AV Area Index (Cont Eq VTI) 0.74 cm2/m2 AV Area (Cont Eq Vimal) 1.3 cm2 AV Area Index (Cont Eq Vimal) 0.67 cm2/m2 AV V1/V2 Ratio 0.45 AV Regurgitation 2D LVOT Area 2.8 cm2 AV Regurgitation Doppler AR Peak Velocity 1.85 m/s Ventricles Name Value Normal LV Dimensions 2D/MM IVS Diastolic Thickness (2D) 1.0 cm 0.6-1.0 LVID Diastole (2D) 4.3 cm 3.6-5.6 LVIW Diastolic Thickness (2D) 0.9 cm 0.6-1.0 LVID Systole (2D) 2.8 cm 2.5-4.0 LVOT Diameter 1.9 cm LV Mass (2D Cubed) 140.13 g 88.00-224.00 Relative Wall Thickness (2D) 0.43 LV Fractional Shortening/Ejection Fraction 2D/MM LV Fractional Shortening (2D) 36 % 25-43 LV Diastolic Volume (4C MOD) 68 ml LV Diastolic Volume (2C MOD) 56 ml LV Diastolic Volume (BP MOD) 62 ml 62-150 LV Diastolic Volume Index (BP MOD) 32.40 ml/m2 34.00-74.00 LV Systolic Volume (BP MOD) 26 ml 21-61 LV Systolic Volume Index (BP MOD) 13.88 ml/m2 11.00-31.00 LV EF (BP MOD) 57 % 57-68 LV SV (BP MOD) 35.32 ml RV Dimensions 2D/MM RV Basal Diastolic Dimension 4.0 cm 2.5-4.1 TAPSE 2.0 cm >=1.7 Atria Name Value Normal LA Dimensions LA Area (4C) 20.1 cm2 LA Length (4C) 5.4 cm LA Area (2C) 23.9 cm2 LA Length (2C) 6.0 cm LA Volume (4C A-L) 63.29 ml LA Volume (2C A-L) 80.97 ml LA Volume (BP A-L) 75 ml 18-58 LA Volume Index (BP A-L) 39.39 ml/m2 <=34.00 RA Dimensions RA Area (4C) 17.7 cm2 <=18.0 Final Signed by:DO Dial Jason D Signed (Electronic Signature):11/07/2024 12:55 Social History Social History Type Response Smoking Status Never smoked cigaret henyr Sex Male Sex Representation Male (finding) Implantable [...] SC Member Role: Lifetime Relationship Address: [address] Name: MD Shine, Abhinav Burns Position: Referring Member Role: Primary Care Provider Address: [address] [place] [address] Care Team Related Persons Name: SIA BENJAMIN
[2024-11-12 06:28] LABS: Hematocrit (blood only) 36.3 % (42.0-52.0); Hemoglobin 12.7 g/dl (14.0-18.0); Mean Corpuscular Hemoglobin 30.8 pg (25.0-34.0); Mean Corpuscular Volume 88.1 fL (80.0-100.0); Mean Platelet Volume 10.4 fL (9.4-12.4); Platelet Count 211 K/uL (130-400); RDW Coefficient of Variation 12.3 % (11.5-14.5); RDW Standard Deviation 39.9 fL (36.4-46.3); Red Blood Count 4.12 M/uL (4.70-6.10); White Blood Count 11.72 K/ul (4.8-10.8)
[2024-11-12 06:41] LABS: BUN Creatinine Ratio 18.7 (10-20); Calcium 8.9 mg/dl (8.6-10.3); Creatinine Clr Calc Pharmacy 44.5 ml/min; Potassium 4.1 mmol/L (3.5-5.1)
--- NOTE | 2024-11-12 08:17 | Urology Progress Note ---
Date of Service November 12, 2024 Assessment & Plan (1) BPH w urinary obs/LUTS: Plan 88-year-old male status post TURP on 11/10/2024 Patient doing well Labs stable Urine clear yellow off CBI Pending PT OT eval to go back to facility, otherwise stable for discharge home Admission and Anticipated Discharge Date Admission Date: November 10, 2024 Subjective Afebrile with stable vitals. No acute issues overnight. Labs stable today. Patient reports feeling well. Urine draining clear yellow. Physical Exam Physical Exam: General: Alert and oriented, no acute distress HEENT: Normocephalic, mucous membranes moist Pulmonary: Nonlabored respirations Abdomen: Nondistended : Rdz catheter draining clear yellow urine, off CBI Extremities: Moves all 4 spontaneously Neuro: No gross deficits Skin: Warm, dry, no rashes noted Results & Data Vital Signs (Past 12 Hours) Vital Signs Temp Pulse Pulse Resp BP Pulse Ox O2 Del Method 11/12/24 07:54 37.1 C 64 19 131/68 97 Room Air 11/12/24 03:37 37.0 C 67 18 139/75 99 Room Air 11/11/24 22:17 36.7 C 63 20 170/82 H 99 Room Air 11/11/24 21:40 100 H 11/11/24 20:51 Room Air PG Care Time/CCT Total # of Minutes Spent Total Time Spent with Patient: Total time spent is greater than 50% in coordination of care (as documented) at patient's floor/unit and/or counseling patient: Coding Level of Care Code 54146 SUB INP/OBS CARE 2/35MIN Diagnoses BPH w urinary obs/LUTS N40.1; N13.8
[2024-11-12 11:29] VITALS: BP 115/68; RESP 18; TEMP 97.5; O2SAT 98
[2024-11-12 14:08] VITALS: PULSE 70
== END 2024-11-12 16:25 ==
LOC: PACUINP 05:20 → ASU 05:20 → 2N 13:10